=== PATIENT | male | born 1935 | race Caucasian/White ===

== ENCOUNTER 2019-01-09 20:50 | Inpatient (IN) ==
--- NOTE | 2019-01-09 21:06 | Emergency Department Note ---
Disposition Clinical Impression: COPD (chronic obstructive pulmonary disease), Anemia Disposition: Admitted As Inpatient Condition: Good Referrals: Deirdre Cohen CNP [Primary Care Provider] - Time of Disposition: 23:00 General Adult HPI - General Stated complaint: difficulty breathing Time Seen by Provider: 01/09/19 20:50 Source: patient Mode of arrival: EMS Limitations: no limitations Nursing Notes Reviewed: Yes Vital Signs Reviewed: Yes - History of Present Illness HPI Narrative: Patient presents by squad complaining of shortness of breath. Started last night he took his breathing treatment he thought was getting better but over the course of the day started getting worse again. He was given a breathing treatment by the squad on the way in and says he feels about normal at this point. Has not had any fevers or chills. No chest pain nausea or vomiting. Onset (ago): day(s) (1 day) Location: chest Pain Scale: 0 Consistency: constant Improves with: other (Breathing treatment) Worsens with: nothing Associated symptoms: Reports: shortness of breath Treatments Prior to Arrival: other (duoneb treatment, Solu-Medrol as well as Lasix by EMS) - Related Data Home Medications Medication Instructions Recorded Confirmed Losartan Potassium [Cozaar] 100 mg PO DAILY 05/17/17 01/09/19 Torsemide 5 mg PO DAILY 05/17/17 01/09/19 amLODIPine [Norvasc] 10 mg PO DAILY 05/17/17 01/09/19 metFORMIN [Glucophage] 850 mg PO BIDWM 05/17/17 01/09/19 Budesonide/Formoterol 160/4.5 2 puff IH BID 06/07/17 01/09/19 [Symbicort 160/4.5] Pravastatin Sodium [Pravachol] 20 mg PO DAILY 08/01/17 01/09/19 Cyanocobalamin (Vitamin B-12) 1,000 mcg PO DAILY 01/04/18 01/09/19 [Vitamin B-12] Aspirin [Ecotrin] 325 mg PO DAILY 04/18/18 01/09/19 Ipratropium/Albuterol Sulfate 3 ml IH Q6H PRN 09/13/18 01/09/19 [Iprat-Albut 0.5-3(2.5) mg/3 ml] Tiotropium [place] [Spiriva 2 puff IH DAILY 09/13/18 01/09/19 Respimat] Previous Rx's Medication Instructions Recorded Diltiazem CD (24hr) [Cardizem CD] 120 mg PO DAILY #30 cap.er.24h 06/15/17 Omeprazole [PriLOSEC] 40 mg PO BID #56 cap 08/05/17 Albuterol Sulfate [Proventil 2 puff IH Q4HR PRN #1 hfa.aer.ad 04/18/18 Inhaler] Allergies Allergy/AdvReac Type Severity Reaction Status Date / Time No Known Allergies Allergy Verified 01/09/19 21:08 All systems ED: reviewed and negative except as stated. Review of Systems: As Per HPI Constitutional: Denies: fever, chills, weakness, weight change Eyes: Denies: eye pain, eye discharge, vision change ENT ED: Denies: ear pain, throat pain, dental pain, hearing loss, epistaxis, congestion, dysphagia Cardiovascular: Denies: chest pain, palpitations, dyspnea on exertion, edema, syncope Respiratory: Reports: as per HPI, dyspnea, wheezes Gastrointestinal: Denies: abdominal pain, nausea, vomiting, diarrhea, constipation, hematemesis, melena, hematochezia Genitourinary: Denies: urgency, dysuria, frequency, hematuria Musculoskeletal: Denies: back pain, neck pain, arthralgia, myalgia Integumentary: Denies: rash, abrasion, lesions Neurological: Denies: headache, weakness, numbness, paresthesias, confusion, abnormal gait, vertigo Psychiatric: Denies: anxiety, depression, suicidal thoughts, homicidal thoughts, auditory hallucinations, visual hallucinations Endocrine: Denies: fatigue Hematological/Lymphatic: Denies: easy bleeding, easy bruising Allergic/Immunologic: Denies: facial swelling, urticaria Past Medical History - Past Medical History Attestation: Yes The following information was validated with the patient. Source: patient, nursing notes reviewed Medical history: Reports: COPD, coronary artery disease, diabetes, GERD, hyperlipidemia, hypertension Psychiatric history: Reports: no psych history - Social History Smoking Status: Former smoker Smokeless Tobacco Status: No Alcohol use: Reports: none Drug use: Reports: none Physical Exam - General Limitations: no limitations General appearance: alert, in no apparent distress - Head Head exam: atraumatic, normocephalic, normal inspection - Eye Eye exam: Present: normal appearance, PERRL, EOMI - ENT ENT exam: normal exam, normal oropharynx, mucous membranes moist - Neck Neck exam: Present: normal inspection, full ROM, trachea midline - Chest Chest inspection: Present: normal inspection, symmetric chest wall rise - Respiratory Respiratory exam: Present: wheezes (Minimal scattered wheeze). Absent: respiratory distress - Cardiovascular Cardiovascular exam: Present: regular rate, normal rhythm, normal heart sounds - Abdominal Exam Abdominal exam: Present: soft, Non-Tender. Absent: tenderness, distention, guarding, rebound, rigidity - Extremities Exam Extremities exam: Present: normal inspection, full ROM. Absent: tenderness, pedal edema - Back Exam Back exam: Present: normal inspection, full ROM. Absent: tenderness - Neurological Exam Neurological exam: Present: alert, oriented X3 - Psychiatric Psychiatric exam: Present: normal affect, normal mood - Skin Skin exam: Present: warm, dry, intact, normal color Course Vital Signs Temperature 99 F 01/09/19 21:05 Pulse Rate 65 01/09/19 21:05 Respiratory Rate 26 01/09/19 21:05 Blood Pressure 167/65 01/09/19 21:05 O2 Sat by Pulse Oximetry 97 01/09/19 21:05 Temperature 99 F 01/09/19 21:05 Pulse Rate 72 01/09/19 21:49 Respiratory Rate 21 01/09/19 21:49 Blood Pressure 153/60 01/09/19 21:49 O2 Sat by Pulse Oximetry 99 01/09/19 21:49 Oxygen Delivery Oxygen Delivery Nasal Cannula Medical Decision Making - MDM Narrative Medical decision making narrative: I reviewed the patient's medication list Case discussed with Dr. Naylor who accepts admission to the hospital - Lab Data Lab results reviewed: Yes I reviewed the patient's lab results. Result diagrams: 01/09/19 21:25 01/09/19 21:25 Lab Results 01/09/19 01/09/19 Range/Units 21:25 21:25 WBC 6.9 (4.3-11.1) K/mcL RBC 2.84 L (4.19-5.50) M/mcL Hgb 7.6 L (12.9-16.9) g/dL Hct 25.3 L (37.5-50.1) % MCV 89.1 (83.0-100.0) fL MCH 26.8 L (28.0-33.3) pg MCHC 30.0 L (31.6-35.5) g/dL RDW 15.8 H (11.5-14.5) % Plt Count 361 (140-400) K/mcL MPV 10.0 (9.4-12.4) fL Immature Gran % 0.6 (0-4) % Seg Neutrophils % 73.2 % Lymphocytes % 17.3 % Monocytes % 5.9 % Eosinophils % 3.0 % Basophils % 0.0 % Neutrophils # 5.1 (1.6-8.9) K/mcL Lymphocytes # 1.2 (0.6-4.6) K/mcL Monocytes # 0.4 (0.0-1.3) K/mcL Eosinophils # 0.2 (0.0-0.6) K/mcL Basophils # 0.0 (0.0-0.2) K/mcL Sodium 140 (136-145) mEq/L Potassium 4.3 (3.5-5.1) mEq/L Chloride 98 (98-107) mEq/L Carbon Dioxide 36 H (23-29) mEq/L BUN 29 H (8-23) mg/dL Creatinine 1.23 (0.70-1.30) mg/dL Est GFR ( Amer) > 60 (> 60) Est GFR (Non-Af Amer) 56 L (> 60) BUN/Creatinine Ratio 24 (6-26) Glucose 134 H (70-105) mg/dL Calculated Osmolality 298 (280-300) Calcium 9.2 (8.6-10.3) mg/dL Total Bilirubin 0.3 (0.3-1.0) mg/dL AST 11 L (13-39) Units/L ALT 9 (7-52) Units/L Alkaline Phosphatase 42 (34-104) Units/L Troponin I < 0.03 (< 0.04) ng/mL Serum Total Protein 6.4 (6.4-8.9) g/dL Albumin 3.9 (3.5-5.7) g/dL Globulin 2.5 (2.4-3.5) g/dL Albumin/Globulin Ratio 1.6 (1.1-2.2) - Radiology Data Radiology results reviewed: Yes I reviewed the patient's radiology results. - EKG Data EKG #1 EKG attestation: Yes I reviewed and interpreted this EKG. EKG results narrative: EKG shows sinus rhythm with first-degree AV block rate is 70 bpm MA interval 238 ms [place] 84 ms QT interval 367 ms QTC 396 ms QRS axis -[address] elevation there is left axis deviation
[2019-01-09 21:43] LABS: Eosinophils # 0.2 K/mcL (0.0-0.6); Hematocrit 25.3 % (37.5-50.1); Hemoglobin 7.6 g/dL (12.9-16.9); Immature Granulocytes % 0.6 % (0-4); Lymphocytes # 1.2 K/mcL (0.6-4.6); Lymphocytes % 17.3 %; Mean Corpuscular Hemoglobin 26.8 pg (28.0-33.3); Mean Corpuscular Volume 89.1 fL (83.0-100.0); Monocytes # 0.4 K/mcL (0.0-1.3); Monocytes % 5.9 %; Neutrophils # 5.1 K/mcL (1.6-8.9); Platelet Count 361 K/mcL (140-400); Red Blood Count 2.84 M/mcL (4.19-5.50); Red Cell Distribution Width 15.8 % (11.5-14.5); Segmented Neutrophils % 73.2 %; White Blood Count 6.9 K/mcL (4.3-11.1)
[2019-01-09 21:57] LABS: Troponin I < 0.03 ng/mL (< 0.04)
[2019-01-09 21:58] LABS: Alanine Aminotransferase 9 Units/L (7-52); Albumin 3.9 g/dL (3.5-5.7); Albumin/Globulin Ratio 1.6 (1.1-2.2); Alkaline Phosphatase 42 Units/L (34-104); Aspartate Amino Transferase 11 Units/L (13-39); BUN/Creatinine Ratio 24 (6-26); Bilirubin,Total 0.3 mg/dL (0.3-1.0); Blood Urea Nitrogen 29 mg/dL (8-23); Calcium 9.2 mg/dL (8.6-10.3); Carbon Dioxide 36 mEq/L (23-29); Chloride 98 mEq/L (98-107); Globulin 2.5 g/dL (2.4-3.5); Glucose 134 mg/dL (70-105); Osmolality,Calculated 298 (280-300); Potassium 4.3 mEq/L (3.5-5.1); Sodium 140 mEq/L (136-145); Total Protein 6.4 g/dL (6.4-8.9); eGFR For African Americans > 60 (> 60); eGFR For Non-African Americans 56 (> 60)
[2019-01-09] MEDS ORDERED: Naloxone 0.4 MG/ML INJ IVP PRN (23:24)
[2019-01-10] MEDS ORDERED: methylPREDNISolone 125 MG/2 ML VIAL IVP ONE (00:01)
[2019-01-10] MEDS ORDERED: *HR* Dextrose 50 % in Water (Syg) 50 ML SYRINGE IVP PRN (00:03)
[2019-01-10] MEDS ORDERED: Dextrose Gel 15 GM/37.5 ML TUBE PO PRN ×2 (00:03)
[2019-01-10] MEDS ORDERED: D5% in Water 1,000 ML IVC PRN (00:03)
[2019-01-10] MEDS ORDERED: 0.9 % Sodium Chloride 250 ML ONE (00:22)
[2019-01-10 05:57] LABS: Hematocrit 26.6 % (37.5-50.1); Hemoglobin 8.1 g/dL (12.9-16.9); Immature Granulocytes % 0.5 % (0-4); Lymphocytes # 0.2 K/mcL (0.6-4.6); Lymphocytes % 5.2 %; Mean Corpuscular HGB Conc 30.5 g/dL (31.6-35.5); Mean Corpuscular Hemoglobin 26.6 pg (28.0-33.3); Mean Corpuscular Volume 87.5 fL (83.0-100.0); Mean Platelet Volume 9.5 fL (9.4-12.4); Monocytes % 0.7 %; Platelet Count 305 K/mcL (140-400); Red Blood Count 3.04 M/mcL (4.19-5.50); Red Cell Distribution Width 15.8 % (11.5-14.5); Segmented Neutrophils % 93.6 %; White Blood Count 4.3 K/mcL (4.3-11.1)
[2019-01-10 06:10] LABS: BUN/Creatinine Ratio 27 (6-26); Blood Urea Nitrogen 28 mg/dL (8-23); Carbon Dioxide 37 mEq/L (23-29); Chloride 98 mEq/L (98-107); Glucose 225 mg/dL (70-105); Osmolality,Calculated 303 (280-300); Potassium 4.8 mEq/L (3.5-5.1); Sodium 140 mEq/L (136-145); eGFR For African Americans > 60 (> 60); eGFR For Non-African Americans > 60 (> 60)
--- NOTE | 2019-01-10 07:25 | Internal Med History&Physical ---
Date of Encounter: 01/10/19 Time of Encounter: 07:25 Assessment and Plan (1) Acute exacerbation of chronic obstructive airways disease Current visit: Yes Status: Acute Patient has history of chronic COPD and oxygen dependent. He failed outpatient treatment in the office and now in the ER. He will be admitted and have continued IV steroids, aggressive nebulizer treatments. He will continue with his oxygen a takes chronically. We will increase his ADLs as tolerated. Continue his inhalers. At this time do not think he needs antibiotics. (2) Paroxysmal atrial fibrillation Current visit: Yes Status: Chronic History of paroxysmal atrial fibrillation, appears to be in sinus rhythm. No angina or CHF. He is not anticoagulated now because a history of recurring anemia. His Eliquis was discontinued previously and he is on aspirin. He has seen Dr. Rahat Barone the manager entry in the past for this. (3) Diabetes type 2, controlled Current visit: Yes Status: Chronic Chronic history of diabetes mellitus. His last glycohemoglobin was in the appropriate range. He has been a while so we will recheck it Qualifiers: Diabetes mellitus termite control representative insulin use: without termite control representative use Diabetes mellitus complication status: without complication Qualified Code(s): E11.9 - Type 2 diabetes mellitus without complications (4) HTN (hypertension) Current visit: Yes Status: Chronic History of hypertension. He is on numerous medications, including some that are also rate controlling his of atrial fibrillation. Blood pressure is under good control currently. Continue same medication. He apparently is on Cardizem as well as amlodipine at the same time. Apparently this is prescribed by the manager entry. Qualifiers: Hypertension type: essential hypertension Qualified Code(s): I10 - Essential (primary) hypertension (5) Dyspnea Current visit: Yes Status: Acute Patient states that his dyspnea worsened when he finished his steroids that was given to him orally as an outpatient. He is feeling better with IV steroids and admission. Continue the same for now. Continue the oxygen. Qualifiers: Dyspnea type: shortness of breath Qualified Code(s): R06.02 - Shortness of breath; R06.00 - Dyspnea, unspecified; R06.01 - Orthopnea (6) Anemia Current visit: Yes Status: Chronic Recurring issues regarding anemia. He told me he has been scoped while admitted at [place]. His Eliquis was discontinued because of bleeding and is now taking only aspirin. He had over 2 g hemoglobin drop and because of his symptoms the ER physician felt he would benefit from unit of blood. That was already performed. He is feeling better. We will follow again with another hemoglobin in 12 hours. Qualifiers: Anemia type: due to chronic kidney disease Chronic kidney disease stage: stage 3 (moderate) Qualified Code(s): N18.3 - Chronic kidney disease, stage 3 (moderate); D63.1 - Anemia in chronic kidney disease (7) CAD (coronary artery disease) Current visit: Yes Status: Chronic Known history coronary artery disease and previous heart catheterization. Minor disease and did not need intervention other than medical management. No angina or CHF on this admission. Qualifiers: Coronary Disease-Associated Artery/Lesion type: [place] artery [place] vs. transplanted heart: [place] heart Associated angina: without angina Qualified Code(s): I25.10 - Atherosclerotic heart disease of [place] coronary artery without angina pectoris (8) DVT prophylaxis Current visit: Yes Status: Acute Because of his ongoing anemia, need for blood transfusion last night, we will continue his aspirin and will initiate early ambulation as well as elastic stockings. Internal Medicine - H&P: HPI Chief complaint: I got too short of breath and had to come to the ER Admitted From: Emergency Dept Plans for Post Hospital Care: Home History of present illness: Mr. Presley is a 83 year old male who is a previous smoker with a history of COPD, diabetes mellitus, hypertension who is admitted via the ER with exacerbation of COPD and anemia. He was seen in the office on 12/30/18 with complaints of cough and shortness of breath. He was treated with prednisone and azithromycin. He states that he got better until he finished the medication then he got worse again. He started lee ving a cough and "spitting up stuff". He increased his nebulizer treatments without help. He denies any fevers or chills. At home he said he could barely walk from one room to another. He denied any cardiac type chest pain. Despite increasing the frequency of his nebulizer treatments he worsened to the point where he had to come to the emergency room. He was not moving air well there did not clear with nebulizer treatment. He also has a history of chronic anemia. He states his stools "looked normal". He told me he was hospitalized in [place] and had a blood transfusion and was also scoped while in the hospital. He denies any abdominal pain other than in the right lower quadrant particular when he coughs. His hemoglobin dropped about 2 g compared to baseline in the ER physician thought he was symptomatic enough to warrant getting a unit of blood transfused. Having failed outpatient treatment twice for COPD and now having anemia was recommended that he be admitted to the hospital. This morning, after a dose of steroids and breathing treatments he said that he is feeling better. He was still dyspneic and had wheezing present and he thought he was improving. Past Med Surg Social Fam HX - Past Medical History Medical history: COPD, coronary artery disease, diabetes, GERD, hyperlipidemia, hypertension Psychiatric history: no psych history - Past Surgical History Surgical History: orthopedic, other Additional surgical history: heart cath, L ankle ORIF - Social History Smoking Status: Former smoker (Quit smoking in 2008 after having smoked "all his life") Smokeless Tobacco Status: No Alcohol use: none Drug use: none Occupational status: retired Current living situation: Home - Independent Activity Level: Independent ambulation Recent Out of Country Travel Within the Last 8 Weeks: No Exposure or Possible Exposure to Illness During Travel: No - Family History Grandmother Living Status: Hx Family Neurologic Disorders: Yes (stroke) Mother Living Status: Hx Family Cardiac Disorders: Yes (heart failure) Internal Medicine - H&P: Meds Losartan Potassium [Cozaar] 100 mg PO DAILY 05/17/17 [History] Torsemide 5 mg PO DAILY 05/17/17 [History] amLODIPine [Norvasc] 10 mg PO DAILY 05/17/17 [History] metFORMIN [Glucophage] 850 mg PO BIDWM 05/17/17 [History] Budesonide/Formoterol 160/4.5 [Symbicort 160/4.5] 2 puff IH BID 06/07/17 [History] Diltiazem CD (24hr) [Cardizem CD] 120 mg PO DAILY #30 cap.er.24h 06/15/17 [Rx] Pravastatin Sodium [Pravachol] 20 mg PO DAILY 08/01/17 [History] Omeprazole [PriLOSEC] 40 mg PO BID #56 cap 08/05/17 [Rx] Cyanocobalamin (Vitamin B-12) [Vitamin B-12] 1,000 mcg PO DAILY 01/04/18 [History] Albuterol Sulfate [Proventil Inhaler] 2 puff IH Q4HR PRN #1 hfa.aer.ad 04/18/18 [Rx] Aspirin [Ecotrin] 325 mg PO DAILY 04/18/18 [History] Ipratropium/Albuterol Sulfate [Iprat-Albut 0.5-3(2.5) mg/3 ml] 3 ml IH Q6H PRN 09/13/18 [History] Tiotropium [place] [Spiriva Respimat] 2 puff IH DAILY 09/13/18 [History] Allergy/AdvReac Type Severity Reaction Status Date / Time No Known Allergies Allergy Verified 01/09/19 21:08 - Constitutional Constitutional: no chills, no fever(s), no falls - EENT Eyes: no change in vision Ears: no ear discharge, no ear pain Nose, mouth and throat: no dry mouth, no sore throat - Cardiovascular Cardiovascular ROS IM: dyspnea, dyspnea on exertion, no chest pain, no claudication, no edema, no irregular heart rhythm, no lightheadedness - Respiratory Respiratory: cough, dyspnea, dyspnea on exertion, wheezing, chest congestion, excessive phlegm production, no hemoptysis - Gastrointestinal Gastrointestinal: no change in bowel habits, no change in stool character, no coffee ground emesis, no constipation, no diarrhea, no dyspepsia, no loose stools, no melena, no nausea - Genitourinary Genitourinary ROS male: no difficulty urinating, no dysuria - Musculoskeletal Musculoskeletal ROS IM: no arthralgias, no joint swelling - Integumentary Integumentary IM: no erythema, no new lesions, no rash - Neurological Neurological ROS: no dizziness, no focal weakness, no vertigo - Psychiatric Psychiatric: no depression - Constitutional Vitals: Temp Pulse Resp BP Pulse Ox 97.7 F 68 16 145/67 97 01/10/19 03:59 01/10/19 03:59 01/10/19 03:59 01/10/19 03:59 01/10/19 03:59 General appearance: Present: cooperative, mild distress, A&O X 3, answers questions appropriately - Head Head exam: Present: atraumatic - ENT ENT exam: Present: TM's normal bilaterally Additional comments: Mucous membranes are moist. He is missing many teeth. - Neck Neck exam general surgery: Absent: lymphadenopathy, tenderness, nuchal rigidity, thyromegaly - Respiratory Additional comments: Diminished breath sounds throughout. Inspiratory wheezes heard throughout. No respiratory distress. No localization of crackles or rhonchi. No cough. He is wearing oxygen at 3 L per nasal cannula - Cardiovascular Cardiovascular exam: Present: RRR, +S1, +S2, systolic murmur (2/6 systolic murmur) - GI/Abdominal GI/Abdominal exam: Present: soft. Absent: guarding, hepatomegaly, mass, tenderness - Extremities Exam Extremities exam: Absent: calf tenderness, cyanotic, mottling, pedal edema, tenderness - Neurological Exam Neurological exam: Present: CN II-XII intact, strengths equal and symetr throughout Internal Med - H&P Results - Labs CBC & Chem 7: 01/10/19 15:55 01/10/19 05:50 Labs: Short CBC 01/09/19 01/10/19 Range/Units 21:25 05:50 WBC 6.9 4.3 (4.3-11.1) K/mcL Hgb 7.6 L 8.1 L (12.9-16.9) g/dL Hct 25.3 L 26.6 L (37.5-50.1) % Plt Count 361 305 (140-400) K/mcL Neutrophils # 5.1 4.0 (1.6-8.9) K/mcL BMP 01/09/19 01/10/19 21:25 05:50 Sodium 140 140 Potassium 4.3 4.8 Chloride 98 98 Carbon Dioxide 36 H 37 H BUN 29 H 28 H Creatinine 1.23 1.03 Glucose 134 H 225 H Calcium 9.2 9.0 Cardiac Enzymes 01/09/19 Range/Units 21:25 Troponin I < 0.03 (< 0.04) ng/mL Liver Function 01/09/19 Range/Units 21:25 Total Bilirubin 0.3 (0.3-1.0) mg/dL AST 11 L (13-39) Units/L ALT 9 (7-52) Units/L Alkaline Phosphatase 42 (34-104) Units/L Albumin 3.9 (3.5-5.7) g/dL Labs have been reviewed. Blood blister count is normal. Creatinine normal. Troponin negative. Hemoglobin on admission in the ER was 7.6, after transfusion 1 unit is 8.1. - Impressions ITS Impressions Chest X-Ray 01/09/19 21:08 IMPRESSION: Negative portable study. D/ / Shirley Malin Cha, MD / Shirley Malin Cha, MD Interpreting Provider: Shirley Malin Cha, MD
[2019-01-10] MEDS: *HR* Metformin 850 MG TABLET PO SCH ×2 (08:17→17:01)
[2019-01-10] MEDS: Aspirin Enteric Coated 325 MG Tablet PO SCH (08:17)
[2019-01-10] MEDS: Torsemide 20 MG TABLET PO SCH (08:17)
[2019-01-10] MEDS: Diltiazem CD (24hr) 120 MG CAPSULE PO SCH (08:17)
[2019-01-10] MEDS: amLODIPine 5 MG TABLET PO SCH (08:17)
[2019-01-10] MEDS: Cyanocobalamin (B-12) 1,000 MCG TABLET PO SCH (08:18)
[2019-01-10] MEDS: Ipratropium/Albuterol Neb 3 ML IH PRN ×2 (08:53→19:16)
[2019-01-10] MEDS: Budesonide/Formoterol 160/4.5 1 PUFF INH IH SCH ×2 (08:54→19:17)
[2019-01-10] MEDS: Tiotropium 18 MCG inhalation IH SCH (08:56)
[2019-01-10 10:28] LABS: Estimated Average Glucose 120 mg/dl
--- NOTE | 2019-01-10 14:06 | Electrocardiograph Report ---
[place] [id number] Test Date: 2019-01-09 Pat Name: Glenda Presley Department: EDG3 Room: 112 Gender: M Director [place]: : 1935 Requested By: Santiago Call Order Number: [id number] Reading MD: Letty Mcguire Measurements Intervals [place] Rate: 70 P: 122 WI: 238 QRS: -38 QRSD: 84 T: 73 QT: 367 QTc: 396 Interpretive Statements Sinus rhythm with 1st degree AVB Left axis deviation Probable anteroseptal infarct, old Electronically Signed On 01-10-2019 14:04:18 EDT by Letty Mcguire
--- NOTE | 2019-01-10 19:56 | Event Note ---
Date of Encounter: 01/10/19 Time of Encounter: 19:55 I reevaluated the patient this evening. He is asking for another breathing treatment. He states he could not do more than just minimal walking in his small room. Requiring oxygen at 3 L. He told me he is feeling more dyspneic tonight than he did this morning. Denies any cardiac type chest pain. He has inspiratory next story wheezes, decreased breath sounds in the left side compared to this morning. Heart is regular rate and rhythm with 2/6 systolic murmur. Having failed outpatient treatment twice including the office and ER, and he is not improving with his symptoms, I believe he needs ongoing IV steroids, oxygen and aggressive nebulizer treatments. I will make arrangements for him to be admitted as I anticipate is going to be here 2 midnights or more.
[2019-01-10] MEDS: methylPREDNISolone 125 MG/2 ML VIAL IVP SCH (23:32)
[2019-01-11 05:40] LABS: Hemoglobin 7.8 g/dL (12.9-16.9); Immature Granulocytes % 0.6 % (0-4); Lymphocytes # 0.3 K/mcL (0.6-4.6); Lymphocytes % 3.3 %; Mean Corpuscular HGB Conc 31.2 g/dL (31.6-35.5); Mean Corpuscular Volume 86.5 fL (83.0-100.0); Monocytes # 0.1 K/mcL (0.0-1.3); Monocytes % 1.7 %; Platelet Count 304 K/mcL (140-400); Red Blood Count 2.89 M/mcL (4.19-5.50); Red Cell Distribution Width 15.9 % (11.5-14.5); Segmented Neutrophils % 94.4 %; White Blood Count 8.2 K/mcL (4.3-11.1)
[2019-01-11 05:41] LABS: Neutrophils # 7.7 K/mcL (1.6-8.9)
[2019-01-11 05:54] LABS: BUN/Creatinine Ratio 31 (6-26); Blood Urea Nitrogen 35 mg/dL (8-23); Calcium 8.8 mg/dL (8.6-10.3); Carbon Dioxide 33 mEq/L (23-29); Chloride 100 mEq/L (98-107); Glucose 195 mg/dL (70-105); Osmolality,Calculated 301 (280-300); Sodium 139 mEq/L (136-145); eGFR For African Americans > 60 (> 60); eGFR For Non-African Americans > 60 (> 60)
--- NOTE | 2019-01-11 07:24 | Internal Med Progress Note ---
Date of Encounter: 01/11/19 Time of Encounter: 07:22 - Assessment and plan (1) Acute exacerbation of chronic obstructive airways disease Current Visit: Yes Status: Acute Assessment and plan: He feels like he is improving. With now the parents of rhonchi he may have an underlying infection. I am going to add an antibiotic orally. Continue with his nebulizer treatments, but he thinks he needs a more often and will increase from every 6 hours every 4 hours when necessary. Continue IV steroids. (2) Paroxysmal atrial fibrillation Current Visit: Yes Status: Chronic Assessment and plan: Regular rate and rhythm. No signs of atrial fibrillation or cardiac symptoms. Not anticoagulated because of his history of anemia (3) Diabetes type 2, controlled Current Visit: Yes Status: Chronic Assessment and plan: Sugars are under fair control. Continue current regimen. His glycohemoglobin is 5.8%. (But he has had a recent blood transfusion) Qualifiers: Diabetes mellitus mcfp insulin use: without medical terminologist use Diabetes mellitus complication status: without complication Qualified Code(s): E11.9 - Type 2 diabetes mellitus without complications (4) HTN (hypertension) Current Visit: Yes Status: Chronic Assessment and plan: Blood pressure is under good control. Qualifiers: Hypertension type: essential hypertension Qualified Code(s): I10 - Essential (primary) hypertension (5) Dyspnea Current Visit: Yes Status: Acute Assessment and plan: His breathing is showing some improvement. Still requires oxygen. We are going to try to increase his activity level. Qualifiers: Dyspnea type: shortness of breath Qualified Code(s): R06.02 - Shortness of breath; R06.00 - Dyspnea, unspecified; R06.01 - Orthopnea (6) Anemia Current Visit: Yes Status: Chronic Assessment and plan: His hemoglobin is dipping again. He had negative Hemoccult in the ER. We will recheck another Hemoccult. I will try to find documentation of his endoscopies at [place]. He is already on PPI. Please not she has never seen a raw hide trimmer, and that may be necessary. He had evidence of iron deficiency anemia and may. I will repeat his iron studies. I will be sure he is taking his iron. Qualifiers: Anemia type: due to chronic kidney disease Chronic kidney disease stage: stage 3 (moderate) Qualified Code(s): N18.3 - Chronic kidney disease, stage 3 (moderate); D63.1 - Anemia in chronic kidney disease (7) CAD (coronary artery disease) Current Visit: Yes Status: Chronic Assessment and plan: No angina or CHF. Qualifiers: Coronary Disease-Associated Artery/Lesion type: [place] artery [place] vs. transplanted heart: [place] heart Associated angina: without angina Qualified Code(s): I25.10 - Atherosclerotic heart disease of [place] coronary artery without angina pectoris (8) DVT prophylaxis Current Visit: Yes Status: Acute Assessment and plan: Using elastic stockings and ambulation. We are trying to avoid anticoagulation because of his anemia. - Subjective Interval history: Feels that he is getting better. He is looking forward to getting a shower today. He is really not been able to be out of the room yet because of his br eathing. He is having less sputum. Having no cardiac chest pain. He thinks he is having less swelling in his feet. His hemoglobin is back down today. He denies melena or hematochezia. He thinks he had endoscopies when he was admitted in [place] in the past, but is not certain. He does not think he has seen a raw hide trimmer though it was recommended in the office records. No abdominal pain. - Constitutional Vitals: Temp Pulse Resp BP Pulse Ox 98.4 F 71 20 142/63 99 01/11/19 07:18 01/11/19 07:18 01/11/19 07:18 01/11/19 07:18 01/11/19 07:18 General appearance: Present: cooperative, A&O X 3, answers questions appropriately Exam: Patient is sitting at the edge the bed drinking a cup of coffee this morning. He is wearing his oxygen. He is in no distress. - Respiratory Respiratory exam: Present: decreased breath sounds, prolonged expiratory phase Additional comments: A few rhonchi noted in the right mid and lower lung field. End-expiratory wheezes heard. No respiratory distress. - Cardiovascular Cardiovascular exam: Present: RRR, +S1, +S2, systolic murmur (2/6 systolic murmur heard best along the left lower sternal border) - Extremities Exam Additional comments: Patient is wearing his elastic stockings. He does have edema over the dorsum of both feet. Internal Medicine: Result - Labs CBC & Chem 7: 01/11/19 05:00 01/11/19 05:00 Labs: Short CBC 01/10/19 01/11/19 Range/Units 15:55 05:00 WBC 8.2 D (4.3-11.1) K/mcL Hgb 9.2 L 7.8 L (12.9-16.9) g/dL Hct 25.0 L (37.5-50.1) % Plt Count 304 (140-400) K/mcL Neutrophils # 7.7 (1.6-8.9) K/mcL BMP 01/11/19 05:00 Sodium 139 Potassium 5.0 Chloride 100 Carbon Dioxide 33 H BUN 35 H Creatinine 1.12 Glucose 195 H Calcium 8.8 Hemoglobin has dropped again from 9.2-7.8. The rest of his lab work is basically unremarkable. Consult Discharge Plan - Plan
[2019-01-11] MEDS: methylPREDNISolone 125 MG/2 ML VIAL IVP SCH ×3 (08:16→23:58)
[2019-01-11] MEDS: Aspirin Enteric Coated 325 MG Tablet PO SCH (08:17)
[2019-01-11] MEDS: Diltiazem CD (24hr) 120 MG CAPSULE PO SCH (08:18)
[2019-01-11] MEDS: *HR* Metformin 850 MG TABLET PO SCH ×2 (08:18→16:15)
[2019-01-11] MEDS: levoFLOXacin 500 MG TABLET PO SCH (08:18)
[2019-01-11] MEDS: Torsemide 20 MG TABLET PO SCH (08:19)
[2019-01-11] MEDS: amLODIPine 5 MG TABLET PO SCH (08:19)
[2019-01-11] MEDS: Cyanocobalamin (B-12) 1,000 MCG TABLET PO SCH (08:20)
[2019-01-11] MEDS: Ipratropium/Albuterol Neb 3 ML IH PRN ×3 (08:35→20:20)
[2019-01-11] MEDS: Tiotropium 18 MCG inhalation IH SCH (09:48)
[2019-01-11] MEDS: Budesonide/Formoterol 160/4.5 1 PUFF INH IH SCH ×2 (09:48→20:20)
[2019-01-11] MEDS ORDERED: Saline Nasal Spray 44 ML BOTTLE NS PRN (11:05)
[2019-01-11 19:15] LABS: % Iron Saturation 9 % (20-55); Iron 42 mcg/dL (65-175); Transferrin 335 mg/dL (203-362)
[2019-01-12] MEDS: Ipratropium/Albuterol Neb 3 ML IH PRN (00:10)
[2019-01-12] MEDS: levoFLOXacin 500 MG TABLET PO SCH (08:09)
[2019-01-12] MEDS: *HR* Metformin 850 MG TABLET PO SCH ×2 (08:09→16:27)
[2019-01-12] MEDS: Torsemide 20 MG TABLET PO SCH (08:09)
[2019-01-12] MEDS: amLODIPine 5 MG TABLET PO SCH (08:10)
[2019-01-12] MEDS: Aspirin Enteric Coated 325 MG Tablet PO SCH (08:10)
[2019-01-12] MEDS: Cyanocobalamin (B-12) 1,000 MCG TABLET PO SCH (08:10)
[2019-01-12] MEDS: Diltiazem CD (24hr) 120 MG CAPSULE PO SCH (08:10)
[2019-01-12] MEDS: methylPREDNISolone 125 MG/2 ML VIAL IVP SCH ×2 (10:16→16:27)
[2019-01-12] MEDS: Tiotropium 18 MCG inhalation IH SCH (10:16)
[2019-01-12] MEDS: Budesonide/Formoterol 160/4.5 1 PUFF INH IH SCH (10:20)
[2019-01-12 15:51] VITALS: BP 144/56
--- NOTE | 2019-01-12 16:47 | Discharge Summary ---
- NOTES TO OUTPATIENT PROVIDER Notes to Outpatient Provider: #1. Patient needs follow-up with GI because of anemia and guaiac positive stool. Referral has been placed in [facility]. #2. Patient being discharged on prednisone and levofloxacin. #3. Order printed for follow-up hemoglobin to be done no later than Wednesday Date of Encounter: 01/12/19 Time of Encounter: 16:45 - Discharge Diagnosis (1) Acute exacerbation of chronic obstructive airways disease Priority: Primary Status: Acute Comments: Patient was admitted to the hospital via ER with a history of dyspnea and cough. He had exacerbation of COPD. He received aggressive intravenous steroids and nebulizer treatment and started on levofloxacin. Over the subsequent 2-3 days he improved dramatically. His cough diminished, sputum production was minimal and was able to be ambulatory in the hallway without difficulty. He is chronically dependent on oxygen at 3 L and his saturations are staying in the mid 90s. He will continue his MDIs as well as his nebulizer treatments at home. He will start a taper of prednisone and finish out a course of Levaquin. He will follow-up in the office with Dr. Naylor in a few days. He was told to call or return if he is worsening. (2) Guaiac positive stools Priority: Secondary Status: Acute Comments: On admission patient's blood count had dropped from 9 range chronically to 7.6 and because of his symptoms to ER physician transfuse a unit of blood. Since then his blood count has been in the 7.8-9.2 g range. Latest hemoglobin 8.3. He did not need a blood transfusion afterwards. However, they ER reported guaiac negative stool, but guaiac was positive as tested prior to discharge. He does not have any signs of a brisk bleed or hemodynamically unstable. No angina. He had a colonoscopy July [address] Corbin. I could not find a specific record that he has had an EGD. With his iron deficiency anemia and guaiac positive stool recommended he be reevaluated Dr. Corbin anticipate EGD to be done. I recommended decreasing his aspirin from 325 mg down 81 mg daily. He takes this because of his history of coronary artery disease and prior atrial fibrillation. (He was on Eliquis but it was discontinued because of his anemia issues). He is to have a hemoglobin tested no later than next Wednesday. I told him about warning signs to look for including blood per rectum, melena, abdominal pain, lightheadedness, angina etc. (3) Paroxysmal atrial fibrillation Priority: Secondary Status: Chronic Comments: Prior history of paroxysmal atrial fibrillation. He has been in sinus rhythm and asymptomatic regarding cardiac symptoms. No changes were made in his medications. Interestingly, he is on Norvasc as well as diltiazem and apparently that is with cardiology consent. (4) Diabetes type 2, controlled Priority: Secondary Status: Chronic Comments: Long-standing history of diabetes. His glycohemoglobin was 5.8%. His sugars occasionally were in the 200 range but otherwise under reasonable control with metformin. No changes were made in his medication. Qualifiers: Diabetes mellitus longterm insulin use: without longterm use Diabetes mellitus complication status: without complication Qualified Code(s): E11.9 - Type 2 diabetes mellitus without complications (5) HTN (hypertension) Priority: Secondary Status: Chronic Comments: Patient has a history of hypertension. His blood pressures are under good control. No hypotension despite the anemia. The changes were made in his blood pressure medications. Qualifiers: Hypertension type: essential hypertension Qualified Code(s): I10 - Essential (primary) hypertension (6) Dyspnea Priority: Secondary Status: Acute Qualifiers: Dyspnea type: shortness of breath Qualified Code(s): R06.02 - Shortness of breath; R06.00 - Dyspnea, unspecified; R06.01 - Orthopnea (7) Anemia Priority: Secondary Status: Chronic Comments: Patient was noted to have anemia on admission. Discussed as above. I recommended reevaluation with Dr. Corbin as I anticipate he needs EGD with his iron deficiency anemia and guaiac-positive stool. Qualifiers: Anemia type: due to chronic kidney disease Chronic kidney disease stage: stage 3 (moderate) Qualified Code(s): N18.3 - Chronic kidney disease, stage 3 (moderate); D63.1 - Anemia in chronic kidney disease (8) CAD (coronary artery disease) Priority: Secondary Status: Chronic Comments: No angina or CHF symptoms. We continued his current medications. I did decrease his aspirin from 325 mg to 81 mg because of guaiac positive stool and anemia. Qualifiers: Coronary Disease-Associated Artery/Lesion type: [place] artery [place] vs. transplanted heart: [place] heart Associated angina: without angina Qualified Code(s): I25.10 - Atherosclerotic heart disease of [place] coronary artery without angina pectoris Hospital course: Mr. Presley is a 83 year old male with known history of oxygen dependent COPD wa s admitted with exacerbation of COPD and anemia that required a blood transfusion. Please see the diagnoses above. At time of discharge she was ambulatory in the hallway, his cough dyspnea and sputum production all have improved dramatically and he is ready for discharge. Follow-up has been arranged for next week. Discharge discussed with: patient - Time Spent with Patient Total time spent providing and/or coordinating discharge services: - Discharge Medications Prescriptions: New Ipratropium/Albuterol Neb [Duoneb] 3 ml IH [id number] PRN inhsol PRN Reason: Shortness Of Breath/Wheezing Ferrous Sulfate 325 mg PO BIDWM #60 tablet levoFLOXacin [Levaquin] 500 mg PO DAILY #7 tablet predniSONE [PredniSONE] 10 mg PO DAILY #63 tablet Continued Budesonide/Formoterol 160/4.5 [Symbicort 160/4.5] 2 puff IH BID Diltiazem CD (24hr) [Cardizem CD] 120 mg PO DAILY #30 cap.er.24h Pravastatin Sodium [Pravachol] 20 mg PO DAILY Omeprazole [PriLOSEC] 40 mg PO BID #56 cap Cyanocobalamin (Vitamin B-12) [Vitamin B-12] 1,000 mcg PO DAILY Tiotropium [place] [Spiriva Respimat] 2 puff IH DAILY Ipratropium/Albuterol Sulfate [Iprat-Albut 0.5-3(2.5) mg/3 ml] 3 ml IH Q6H PRN PRN Reason: Shortness Of Breath amLODIPine [Norvasc] 10 mg PO DAILY Losartan Potassium [Cozaar] 100 mg PO DAILY metFORMIN [Glucophage] 850 mg PO BIDWM Torsemide 5 mg PO DAILY Aspirin [Ecotrin] 325 mg PO DAILY Albuterol Sulfate [Proventil Inhaler] 2 puff IH Q4HR PRN #1 hfa.aer.ad PRN Reason: Shortness Of Breath/Wheezing Home Medications: Losartan Potassium [Cozaar] 100 mg PO DAILY 05/17/17 [History] Torsemide 5 mg PO DAILY 05/17/17 [History] amLODIPine [Norvasc] 10 mg PO DAILY 05/17/17 [History] metFORMIN [Glucophage] 850 mg PO BIDWM 05/17/17 [History] Budesonide/Formoterol 160/4.5 [Symbicort 160/4.5] 2 puff IH BID 06/07/17 [History] Diltiazem CD (24hr) [Cardizem CD] 120 mg PO DAILY #30 cap.er.24h 06/15/17 [Rx] Pravastatin Sodium [Pravachol] 20 mg PO DAILY 08/01/17 [History] Omeprazole [PriLOSEC] 40 mg PO BID #56 cap 08/05/17 [Rx] Cyanocobalamin (Vitamin B-12) [Vitamin B-12] 1,000 mcg PO DAILY 01/04/18 [History] Albuterol Sulfate [Proventil Inhaler] 2 puff IH Q4HR PRN #1 hfa.aer.ad 04/18/18 [Rx] Aspirin [Ecotrin] 325 mg PO DAILY 04/18/18 [History] Ipratropium/Albuterol Sulfate [Iprat-Albut 0.5-3(2.5) mg/3 ml] 3 ml IH Q6H PRN 09/13/18 [History] Tiotropium [place] [Spiriva Respimat] 2 puff IH DAILY 09/13/18 [History] Ferrous Sulfate 325 mg PO BIDWM #60 tablet 01/12/19 [Rx] Ipratropium/Albuterol Neb [Duoneb] 3 ml IH [id number] PRN inhsol 01/12/19 [Rx] levoFLOXacin [Levaquin] 500 mg PO DAILY #7 tablet 01/12/19 [Rx] predniSONE [PredniSONE] 10 mg PO DAILY #63 tablet 01/12/19 [Rx] Allergies/Adverse Reactions: Allergy/AdvReac Type Severity Reaction Status Date / Time No Known Allergies Allergy Verified 01/09/19 21:08 Date of admission: 01/10/19 19:58 Primary care physician: Deirdre Cohen CNP Discharging clinician: Tarik Naylor Anticipated date of discharge: 01/12/19 - Constitutional Vitals: Temp Pulse Resp BP Pulse Ox 98.8 F 72 18 144/56 98 01/12/19 15:46 01/12/19 15:46 01/12/19 15:46 01/12/19 15:46 01/12/19 15:46 General appearance: Present: cooperative, A&O X 3, answers questions appropriately - Respiratory Additional comments: Diminished breath sounds throughout. A few sonorous breath sounds at the bases but no localization of crackles or rhonchi or wheezing. No respiratory distress. Saturations in the mid 90s with 3 L per nasal cannula. - Cardiovascular Cardiovascular exam: Present: RRR, +S1, +S2, systolic murmur (2/6 systolic murmur.) - Extremities Exam Additional comments: Pitting edema on dorsum of both feet. Nontender. No calf tenderness. Negative Homans sign. - Patient Status Disposition: Home, Self-Care Condition: Good Functional capacity at discharge: independent ambulation Overall status at discharge: patient is progressing back to baseline - Discharge Instructions Follow Up With: Tarik Naylor MD [Partnered Physician] - 01/18/19 9:45 am Forms: ED Satisfaction Letter - Diet and Activity Activity: increase activity as tolerated, wear oxygen at night Diet: diabetic diet, low salt diet - VTE Documentation of Mechanical Device: Graduated compression elastic hosiery
== END 2019-01-12 17:16 | disposition home or self-care (01) | DRG 192 ==
LOC: INPGRE 20:50 → EMEROOGRE 20:50 → INPGRE 23:24
PROVIDERS: ADMIT Family Medicine; ATTEND Family Medicine

== ENCOUNTER 2020-01-24 11:51 | Inpatient (IN) ==
[2020-01-24] MEDS ORDERED: Ipratropium/Albuterol Neb 3 ML IH ONE (12:18)
[2020-01-24] MEDS ORDERED: levoFLOXacin 750 MG/150 ML 750 MG/150 ML BAG IVPB ONE (12:43)
[2020-01-24 13:33] LABS: Basophils % 0.2 %; Eosinophils # 0.1 K/mcL (0.0-0.6); Eosinophils % 0.6 %; Hematocrit 27.9 % (37.5-50.1); Hemoglobin 8.5 g/dL (12.9-16.9); Immature Granulocytes % 0.5 % (0-4); Lymphocytes # 0.4 K/mcL (0.6-4.6); Mean Corpuscular HGB Conc 30.5 g/dL (31.6-35.5); Mean Corpuscular Hemoglobin 29.3 pg (28.0-33.3); Mean Corpuscular Volume 96.2 fL (83.0-100.0); Mean Platelet Volume 10.3 fL (9.4-12.4); Monocytes # 0.5 K/mcL (0.0-1.3); Monocytes % 5.4 %; Neutrophils # 8.7 K/mcL (1.6-8.9); Platelet Count 255 K/mcL (140-400); Red Cell Distribution Width 15.7 % (11.5-14.5); Segmented Neutrophils % 89.3 %; White Blood Count 9.8 K/mcL (4.3-11.1)
[2020-01-24 13:41] LABS: INR 1.1; Prothrombin Time 12.5 Seconds (9.4-12.1)
[2020-01-24 13:44] LABS: Activated Partial Thrombo Time 32.1 Seconds (26.0-36.0)
[2020-01-24 13:51] LABS: Troponin I 0.03 ng/mL (< 0.04)
[2020-01-24 13:52] LABS: Alanine Aminotransferase 10 Units/L (7-52); Albumin 3.7 g/dL (3.5-5.7); Albumin/Globulin Ratio 1.6 (1.1-2.2); Alkaline Phosphatase 30 Units/L (34-104); Aspartate Amino Transferase 13 Units/L (13-39); BUN/Creatinine Ratio 38 (6-26); Bilirubin,Direct 0.1 mg/dL (0.0-0.2); Bilirubin,Indirect 0.3 mg/dL (0.0-1.0); Bilirubin,Total 0.4 mg/dL (0.3-1.0); Blood Urea Nitrogen 35 mg/dL (8-23); Calcium 9.2 mg/dL (8.6-10.3); Carbon Dioxide 38 mEq/L (23-29); Chloride 102 mEq/L (98-107); Globulin 2.3 g/dL (2.4-3.5); Glucose 102 mg/dL (70-105); Osmolality,Calculated 310 (280-300); Potassium 3.8 mEq/L (3.5-5.1); Sodium 146 mEq/L (136-145); eGFR For African Americans > 60 (> 60); eGFR For Non-African Americans > 60 (> 60)
[2020-01-24 13:58] LABS: Bilirubin,Urine Negative (Negative); Blood,Urine Small (Negative); Clarity,Urine Clear (Clear); Color,Urine Yellow (Yellow); Glucose,Urine (UA) Normal (Normal); Ketones,Urine Negative (Negative); Leukocyte Esterase,Urine Negative (Negative); Nitrite,Urine Negative (Negative); Protein,Urine 100 mg/dL (Neg-Trace); Specific Gravity,Urine 1.025 (1.010-1.025); Urobilinogen,Urine Normal (Normal)
[2020-01-24 14:02] LABS: VBG HCO3 38 mEq/L (21-27); VBG PCO2 77 mmHg (41-51); VBG PO2 40 mmHg (25-50)
[2020-01-24 14:10] LABS: WBC,Urine 0-3 per hpf (0-3)
[2020-01-24 14:52] LABS: ABG Base Excess 9 mEq/L (-2 to 3); ABG HCO3 37 mEq/L (21-27); ABG Oxygen Saturation 96 % (95-98); ABG PCO2 75 mmHg (35-45); ABG PH 7.31 pH Units (7.32-7.45); ABG PO2 94 mmHg (85-104); ABG TCO2 40 mEq/L (20-26)
[2020-01-24 20:11] LABS: Adenovirus Not Detected (Not Detect); Bordetella Pertussis Not Detected (Not Detect); Chlamydophila pneumoniae Not Detected (Not Detect); Coronavirus 229E Not Detected (Not Detect); Coronavirus HKU1 Not Detected (Not Detect); Coronavirus NL63 Not Detected (Not Detect); Coronavirus OC43 Not Detected (Not Detect); Human Metapneumovirus Not Detected (Not Detect); Human Rhinovirus/Enterovirus DETECTED (Not Detect); Influenza A Subtype 2009 H1 Not Detected (Not Detect); Influenza B Not Detected (Not Detect); Mycoplasma pneumoniae Not Detected (Not Detect); Parainfluenza Virus 1 Not Detected (Not Detect); Parainfluenza Virus 2 Not Detected (Not Detect); Parainfluenza Virus 3 Not Detected (Not Detect); Parainfluenza Virus 4 Not Detected (Not Detect); Respiratory Syncytial Virus Not Detected (Not Detect); SARS-CoV-2 Not Detected (Not Detect)
[2020-01-24] MEDS ORDERED: *HR* Dextrose 50 % in Water (Vial) 50 ML VIAL IVP PRN (21:47)
[2020-01-24] MEDS ORDERED: Dextrose Gel 15 GM/37.5 ML TUBE PO PRN ×2 (21:47)
[2020-01-24] MEDS ORDERED: D5% in Water 1,000 ML IVC PRN (21:47)
[2020-01-24] MEDS ORDERED: Ipratropium/Albuterol Neb 3 ML ONE (22:33)
[2020-01-24] MEDS: Ipratropium/Albuterol Neb 3 ML IH SCH (22:38)
[2020-01-24] MEDS: Budesonide/Formoterol 160/4.5 1 PUFF INH IH SCH (22:38)
[2020-01-24] MEDS: amLODIPine 5 MG TABLET PO SCH (22:55)
[2020-01-25] MEDS ORDERED: *HR* Enoxaparin 30 MG/0.3 ML SYRINGE SQ SCH (06:00)
[2020-01-25] MEDS: methylPREDNISolone 125 MG/2 ML VIAL IVP SCH ×4 (06:07→23:15)
[2020-01-25] MEDS: Ipratropium/Albuterol Neb 3 ML IH SCH ×3 (06:46→21:18)
[2020-01-25] MEDS: Budesonide/Formoterol 160/4.5 1 PUFF INH IH SCH ×2 (06:53→21:18)
[2020-01-25 07:27] LABS: Hematocrit 27.1 % (37.5-50.1); Hemoglobin 8.3 g/dL (12.9-16.9); Mean Corpuscular HGB Conc 30.6 g/dL (31.6-35.5); Mean Corpuscular Volume 94.8 fL (83.0-100.0); Mean Platelet Volume 10.7 fL (9.4-12.4); Platelet Count 248 K/mcL (140-400); Red Blood Count 2.86 M/mcL (4.19-5.50); Red Cell Distribution Width 15.4 % (11.5-14.5); White Blood Count 8.7 K/mcL (4.3-11.1)
[2020-01-25 07:32] LABS: VBG HCO3 37 mEq/L (21-27); VBG PCO2 72 mmHg (41-51); VBG PH 7.32 pH Units (7.32-7.42); VBG PO2 46 mmHg (25-50)
[2020-01-25 07:33] LABS: INR 1.1; Prothrombin Time 12.9 Seconds (9.4-12.1)
[2020-01-25 07:35] LABS: Activated Partial Thrombo Time 34.1 Seconds (26.0-36.0)
[2020-01-25 07:47] LABS: Alanine Aminotransferase 10 Units/L (7-52); Albumin 3.7 g/dL (3.5-5.7); Albumin/Globulin Ratio 1.6 (1.1-2.2); Alkaline Phosphatase 32 Units/L (34-104); Aspartate Amino Transferase 16 Units/L (13-39); BUN/Creatinine Ratio 42 (6-26); Bilirubin,Total 0.3 mg/dL (0.3-1.0); Blood Urea Nitrogen 37 mg/dL (8-23); Calcium 9.4 mg/dL (8.6-10.3); Carbon Dioxide 37 mEq/L (23-29); Chloride 98 mEq/L (98-107); Globulin 2.3 g/dL (2.4-3.5); Glucose 152 mg/dL (70-105); Osmolality,Calculated 304 (280-300); Sodium 141 mEq/L (136-145); eGFR For African Americans > 60 (> 60); eGFR For Non-African Americans > 60 (> 60)
[2020-01-25] MEDS: Torsemide 20 MG TABLET PO SCH (09:40)
[2020-01-25] MEDS: *HR* Metformin 500 MG TABLET PO SCH ×2 (09:41→18:23)
[2020-01-25] MEDS: DilTIAZem CD (24hr) 120 MG CAP.ER.24H PO SCH (09:41)
[2020-01-25 13:48] LABS: Estimated Average Glucose 117 mg/dl
[2020-01-25] MEDS: levoFLOXacin 500 MG/100 ML 500 MG/100 ML BAG IVPB SCH (14:01)
[2020-01-25] MEDS ORDERED: Albuterol 2.5 MG/3 ML NEBULIZER ONE (15:31)
[2020-01-25] MEDS: Albuterol 2.5 MG/3 ML NEBULIZER IH PRN (15:40)
[2020-01-25] MEDS ORDERED: *HR* Dextrose 50 % in Water (Vial) 50 ML VIAL IVP PRN (17:38)
[2020-01-25] MEDS ORDERED: D5% in Water 1,000 ML IVC PRN (17:38)
[2020-01-25] MEDS ORDERED: Dextrose Gel 15 GM/37.5 ML TUBE PO PRN ×2 (17:38)
[2020-01-25] MEDS: Insulin LISPRO 300 UNITS/3 ML VIAL SQ SCH ×2 (18:22→23:00)
[2020-01-25] MEDS: Mirtazapine 15 MG TABLET PO SCH (23:00)
[2020-01-25] MEDS: amLODIPine 5 MG TABLET PO SCH (23:00)
[2020-01-26] MEDS: *HR* Enoxaparin 40 MG/0.4 ML SYRINGE SQ SCH (05:33)
[2020-01-26] MEDS: Ipratropium/Albuterol Neb 3 ML IH SCH ×4 (05:33→21:51)
[2020-01-26] MEDS: methylPREDNISolone 125 MG/2 ML VIAL IVP SCH ×3 (05:34→18:24)
[2020-01-26] MEDS: Insulin LISPRO 300 UNITS/3 ML VIAL SQ SCH ×4 (08:06→21:11)
[2020-01-26] MEDS: DilTIAZem CD (24hr) 120 MG CAP.ER.24H PO SCH (08:07)
[2020-01-26] MEDS: Torsemide 20 MG TABLET PO SCH (08:07)
[2020-01-26] MEDS: *HR* Metformin 500 MG TABLET PO SCH ×2 (08:08→17:20)
[2020-01-26] MEDS: Budesonide/Formoterol 160/4.5 1 PUFF INH IH SCH ×2 (09:50→21:54)
[2020-01-26 09:55] LABS: ABG Base Excess 9 mEq/L (-2 to 3); ABG HCO3 34 mEq/L (21-27); ABG Oxygen Saturation 98 % (95-98); ABG PCO2 52 mmHg (35-45); ABG PH 7.43 pH Units (7.32-7.45); ABG PO2 102 mmHg (85-104); ABG TCO2 36 mEq/L (20-26)
[2020-01-26 10:30] LABS: Basophils % 0.1 %; Hematocrit 27.1 % (37.5-50.1); Hemoglobin 8.6 g/dL (12.9-16.9); Immature Granulocytes % 0.6 % (0-4); Lymphocytes # 0.2 K/mcL (0.6-4.6); Lymphocytes % 1.7 %; Mean Corpuscular HGB Conc 31.7 g/dL (31.6-35.5); Mean Corpuscular Hemoglobin 29.6 pg (28.0-33.3); Mean Corpuscular Volume 93.1 fL (83.0-100.0); Mean Platelet Volume 10.5 fL (9.4-12.4); Monocytes # 0.4 K/mcL (0.0-1.3); Monocytes % 4.2 %; Neutrophils # 9.3 K/mcL (1.6-8.9); Platelet Count 251 K/mcL (140-400); Red Blood Count 2.91 M/mcL (4.19-5.50); Red Cell Distribution Width 15.8 % (11.5-14.5); Segmented Neutrophils % 93.4 %
[2020-01-26 10:47] LABS: Basophilic Stippling 1+ (Not Present); Platelet Estimate Normal (Normal)
[2020-01-26 10:51] LABS: Alanine Aminotransferase 15 Units/L (7-52); Albumin 3.8 g/dL (3.5-5.7); Albumin/Globulin Ratio 1.4 (1.1-2.2); Alkaline Phosphatase 27 Units/L (34-104); Aspartate Amino Transferase 24 Units/L (13-39); BUN/Creatinine Ratio 29 (6-26); Bilirubin,Total 0.3 mg/dL (0.3-1.0); Blood Urea Nitrogen 29 mg/dL (8-23); Calcium 9.3 mg/dL (8.6-10.3); Carbon Dioxide 36 mEq/L (23-29); Chloride 99 mEq/L (98-107); Globulin 2.7 g/dL (2.4-3.5); Glucose 194 mg/dL (70-105); Osmolality,Calculated 303 (280-300); Sodium 141 mEq/L (136-145); Total Protein 6.5 g/dL (6.4-8.9); eGFR For African Americans > 60 (> 60); eGFR For Non-African Americans > 60 (> 60)
[2020-01-26 10:58] LABS: Bilirubin,Urine Negative (Negative); Blood,Urine Negative (Negative); Clarity,Urine Clear (Clear); Color,Urine Yellow (Yellow); Glucose,Urine (UA) Normal (Normal); Ketones,Urine Negative (Negative); Leukocyte Esterase,Urine Negative (Negative); Nitrite,Urine Negative (Negative); Protein,Urine 100 mg/dL (Neg-Trace); Urobilinogen,Urine Normal (Normal)
[2020-01-26 12:33] LABS: Transitional Epi Cells,Urine Few per hpf (None-Few); WBC,Urine 0-3 per hpf (0-3)
[2020-01-26] MEDS: levoFLOXacin 500 MG/100 ML 500 MG/100 ML BAG IVPB SCH (14:20)
[2020-01-26] MEDS: amLODIPine 5 MG TABLET PO SCH (20:18)
[2020-01-26] MEDS: Mirtazapine 15 MG TABLET PO SCH (20:19)
[2020-01-27] MEDS: Ipratropium/Albuterol Neb 3 ML IH SCH ×3 (04:16→16:53)
[2020-01-27] MEDS: *HR* Enoxaparin 40 MG/0.4 ML SYRINGE SQ SCH (05:45)
[2020-01-27] MEDS ORDERED: methylPREDNISolone 125 MG/2 ML VIAL IVP SCH (06:00)
[2020-01-27 07:33] LABS: Hematocrit 29.8 % (37.5-50.1); Hemoglobin 9.4 g/dL (12.9-16.9); Immature Granulocytes % 0.6 % (0-4); Lymphocytes # 0.1 K/mcL (0.6-4.6); Lymphocytes % 1.3 %; Mean Corpuscular HGB Conc 31.5 g/dL (31.6-35.5); Mean Corpuscular Hemoglobin 29.7 pg (28.0-33.3); Monocytes # 0.5 K/mcL (0.0-1.3); Monocytes % 4.8 %; Neutrophils # 9.7 K/mcL (1.6-8.9); Nucleated Red Blood Cells 0.2 /100 WBC (0); Platelet Count 273 K/mcL (140-400); Red Blood Count 3.17 M/mcL (4.19-5.50); Red Cell Distribution Width 15.9 % (11.5-14.5); Segmented Neutrophils % 93.3 %; White Blood Count 10.4 K/mcL (4.3-11.1)
[2020-01-27 07:45] LABS: BUN/Creatinine Ratio 33 (6-26); Blood Urea Nitrogen 34 mg/dL (8-23); Calcium 9.5 mg/dL (8.6-10.3); Carbon Dioxide 36 mEq/L (23-29); Chloride 99 mEq/L (98-107); Glucose 153 mg/dL (70-105); Osmolality,Calculated 305 (280-300); Potassium 3.8 mEq/L (3.5-5.1); Sodium 142 mEq/L (136-145); eGFR For African Americans > 60 (> 60); eGFR For Non-African Americans > 60 (> 60)
[2020-01-27] MEDS: Torsemide 20 MG TABLET PO SCH (08:26)
[2020-01-27] MEDS: *HR* Metformin 500 MG TABLET PO SCH ×2 (08:27→16:59)
[2020-01-27] MEDS: DilTIAZem CD (24hr) 120 MG CAP.ER.24H PO SCH (08:28)
[2020-01-27] MEDS: Insulin LISPRO 300 UNITS/3 ML VIAL SQ SCH ×3 (08:29→17:01)
[2020-01-27] MEDS: Budesonide/Formoterol 160/4.5 1 PUFF INH IH SCH (09:17)
[2020-01-27] MEDS: Albuterol 2.5 MG/3 ML NEBULIZER IH PRN ×2 (09:17→16:53)
[2020-01-27] MEDS ORDERED: Nitroglycerin 0.4 MG TAB.SUBL SL PRN (10:36)
[2020-01-27] MEDS ORDERED: Nitroglycerin 0.4 MG TAB.SUBL SL ONE (10:38)
[2020-01-27] MEDS ORDERED: Mag Hydrox/Al Hydrox/Simeth 30 ML UDC PO ONE (10:58)
[2020-01-27] MEDS ORDERED: haloperidoL 1 MG TABLET PO ONE (12:10)
[2020-01-27] MEDS: levoFLOXacin 500 MG/100 ML 500 MG/100 ML BAG IVPB SCH (12:44)
[2020-01-27] MEDS ORDERED: Aspirin 325 MG TABLET PO ONE (15:44)
[2020-01-27] MEDS ORDERED: haloperidoL 1 MG TABLET PO PRN (16:46)
[2020-01-27] MEDS ORDERED: *HR* Heparin 5,000 UNIT/ML VIAL IVP PRN ×2 (18:02)
[2020-01-27] MEDS ORDERED: *HR* Heparin 5,000 UNIT/ML VIAL IVP ONE (18:02)
[2020-01-27] MEDS ORDERED: Heparin 25,000UNIT/250ML 1/2NS 25,000 UNIT/250 ML IV.SOLN IVC SCH (18:15)
[2020-01-27 18:25] VITALS: BP 161/62
[2020-01-28] MEDS ORDERED: MethylPREDNISolone 40 MG/ML VIAL IVP SCH (09:00)
== END 2020-01-27 19:08 | disposition short-term general hospital (02) | DRG 193 ==
LOC: EMEROOGRE 11:51 → INPGRE 22:06
PROVIDERS: ADMIT Family Medicine; ATTEND Family Medicine

== ENCOUNTER 2020-02-06 14:44 | Inpatient (IN) ==
[2020-02-06] MEDS ORDERED: D5% in Water 1,000 ML IVC PRN (19:22)
[2020-02-06] MEDS ORDERED: Dextrose Gel 15 GM/37.5 ML TUBE PO PRN ×2 (19:22)
[2020-02-06] MEDS ORDERED: *HR* Dextrose 50 % in Water (Vial) 50 ML VIAL IVP PRN (19:22)
[2020-02-06] MEDS: Mirtazapine 15 MG TABLET PO SCH (21:59)
[2020-02-06] MEDS: Insulin LISPRO 300 UNITS/3 ML VIAL SQ SCH (22:03)
[2020-02-07] MEDS: Budesonide/Formoterol 160/4.5 1 PUFF INH IH SCH ×3 (00:21→20:29)
[2020-02-07] MEDS: Ipratropium/Albuterol Neb 3 ML IH SCH ×8 (00:21→23:30)
[2020-02-07] MEDS: *HR* Enoxaparin 40 MG/0.4 ML SYRINGE SQ SCH (04:46)
[2020-02-07] MEDS: Insulin LISPRO 300 UNITS/3 ML VIAL SQ SCH ×4 (07:51→21:01)
[2020-02-07] MEDS ORDERED: DilTIAZem CD (24hr) 120 MG CAP.ER.24H PO SCH (09:00)
[2020-02-07] MEDS: amLODIPine 5 MG TABLET PO SCH (09:05)
[2020-02-07] MEDS: Aspirin 325 MG TABLET PO SCH (09:05)
[2020-02-07] MEDS: predniSONE 20 MG TABLET PO SCH (09:05)
[2020-02-07] MEDS: Fluticasone Propionate Nasal 50 MCG/SPRAY BOTTLE NS SCH (09:05)
[2020-02-07] MEDS: Torsemide 20 MG TABLET PO SCH (09:06)
[2020-02-07] MEDS: Cyanocobalamin (B-12) 1,000 MCG TABLET PO SCH (09:06)
[2020-02-07] MEDS: *HR* Metformin 500 MG TABLET PO SCH (09:06)
[2020-02-07] MEDS: Mirtazapine 15 MG TABLET PO SCH (21:00)
[2020-02-08] MEDS: *HR* Enoxaparin 40 MG/0.4 ML SYRINGE SQ SCH (04:02)
[2020-02-08] MEDS: Ipratropium/Albuterol Neb 3 ML IH SCH ×6 (04:02→23:00)
[2020-02-08 05:28] LABS: Basophils % 0.1 %; Eosinophils % 0.4 %; Hematocrit 29.2 % (37.5-50.1); Hemoglobin 9.2 g/dL (12.9-16.9); Immature Granulocytes % 2.1 % (0-4); Lymphocytes # 0.8 K/mcL (0.6-4.6); Lymphocytes % 11.4 %; Mean Corpuscular HGB Conc 31.5 g/dL (31.6-35.5); Mean Corpuscular Hemoglobin 28.5 pg (28.0-33.3); Mean Corpuscular Volume 90.4 fL (83.0-100.0); Mean Platelet Volume 10.5 fL (9.4-12.4); Monocytes # 0.7 K/mcL (0.0-1.3); Monocytes % 9.2 %; Neutrophils # 5.4 K/mcL (1.6-8.9); Platelet Count 173 K/mcL (140-400); Red Blood Count 3.23 M/mcL (4.19-5.50); Red Cell Distribution Width 15.8 % (11.5-14.5); Segmented Neutrophils % 76.8 %; White Blood Count 7.1 K/mcL (4.3-11.1)
[2020-02-08 05:53] LABS: BUN/Creatinine Ratio 39 (6-26); Blood Urea Nitrogen 37 mg/dL (8-23); Calcium 8.5 mg/dL (8.6-10.3); Carbon Dioxide 38 mEq/L (23-29); Chloride 98 mEq/L (98-107); Glucose 225 mg/dL (70-105); Osmolality,Calculated 304 (280-300); Potassium 3.6 mEq/L (3.5-5.1); Sodium 139 mEq/L (136-145); eGFR For African Americans > 60 (> 60); eGFR For Non-African Americans > 60 (> 60)
[2020-02-08] MEDS: Budesonide/Formoterol 160/4.5 1 PUFF INH IH SCH ×2 (06:35→19:31)
[2020-02-08] MEDS: Insulin LISPRO 300 UNITS/3 ML VIAL SQ SCH ×4 (07:58→21:57)
[2020-02-08] MEDS: *HR* Metformin 500 MG TABLET PO SCH (08:00)
[2020-02-08] MEDS: Torsemide 20 MG TABLET PO SCH (08:00)
[2020-02-08] MEDS: amLODIPine 5 MG TABLET PO SCH (08:00)
[2020-02-08] MEDS: predniSONE 20 MG TABLET PO SCH (08:00)
[2020-02-08] MEDS: Aspirin 325 MG TABLET PO SCH (08:01)
[2020-02-08] MEDS: Fluticasone Propionate Nasal 50 MCG/SPRAY BOTTLE NS SCH (08:01)
[2020-02-08] MEDS: Cyanocobalamin (B-12) 1,000 MCG TABLET PO SCH (08:01)
[2020-02-08] MEDS: Mirtazapine 15 MG TABLET PO SCH (21:56)
[2020-02-09] MEDS: Ipratropium/Albuterol Neb 3 ML IH SCH ×2 (04:00→07:24)
[2020-02-09] MEDS: *HR* Enoxaparin 40 MG/0.4 ML SYRINGE SQ SCH (04:00)
[2020-02-09] MEDS: Budesonide/Formoterol 160/4.5 1 PUFF INH IH SCH (07:21)
[2020-02-09] MEDS: Insulin LISPRO 300 UNITS/3 ML VIAL SQ SCH (07:53)
[2020-02-09] MEDS: amLODIPine 5 MG TABLET PO SCH (07:54)
[2020-02-09] MEDS: Torsemide 20 MG TABLET PO SCH (07:55)
[2020-02-09] MEDS: *HR* Metformin 500 MG TABLET PO SCH (07:55)
[2020-02-09] MEDS: Aspirin 325 MG TABLET PO SCH (07:55)
[2020-02-09] MEDS: predniSONE 20 MG TABLET PO SCH (07:55)
[2020-02-09] MEDS: Cyanocobalamin (B-12) 1,000 MCG TABLET PO SCH (07:55)
[2020-02-09] MEDS: Fluticasone Propionate Nasal 50 MCG/SPRAY BOTTLE NS SCH (07:56)
[2020-02-09 08:24] VITALS: BP 137/71
== END 2020-02-09 11:45 | disposition home or self-care (01) | DRG 945 ==
LOC: INPGRE 16:49
PROVIDERS: ADMIT Family Medicine; ATTEND Family Medicine

== ENCOUNTER 2020-03-27 08:48 | Observation (INO) ==
[2020-03-27] MEDS ORDERED: Ipratropium/Albuterol Neb 3 ML ONE (08:52)
[2020-03-27] MEDS ORDERED: Furosemide 40 MG/4 ML VIAL IVP ONE (09:08)
[2020-03-27] MEDS ORDERED: methylPREDNISolone 125 MG/2 ML VIAL IVP ONE (09:08)
[2020-03-27 09:19] LABS: Basophils % 0.3 %; Eosinophils # 0.1 K/mcL (0.0-0.6); Hematocrit 41.6 % (37.5-50.1); Hemoglobin 13.2 g/dL (12.9-16.9); Immature Granulocytes % 2.7 % (0-4); Lymphocytes # 1.2 K/mcL (0.6-4.6); Lymphocytes % 8.6 %; Mean Corpuscular HGB Conc 31.7 g/dL (31.6-35.5); Mean Corpuscular Hemoglobin 29.3 pg (28.0-33.3); Mean Corpuscular Volume 92.2 fL (83.0-100.0); Mean Platelet Volume 10.5 fL (9.4-12.4); Monocytes # 0.6 K/mcL (0.0-1.3); Monocytes % 4.5 %; Neutrophils # 11.2 K/mcL (1.6-8.9); Platelet Count 267 K/mcL (140-400); Red Blood Count 4.51 M/mcL (4.19-5.50); Red Cell Distribution Width 14.7 % (11.5-14.5); Segmented Neutrophils % 82.9 %; White Blood Count 13.5 K/mcL (4.3-11.1)
[2020-03-27 09:30] LABS: Bilirubin,Urine Negative (Negative); Blood,Urine Negative (Negative); Clarity,Urine Clear (Clear); Color,Urine Yellow (Yellow); Glucose,Urine (UA) Normal (Normal); Ketones,Urine Negative (Negative); Leukocyte Esterase,Urine Negative (Negative); Nitrite,Urine Negative (Negative); PH,Urine 6.5 pH Units (5.0-8.0); Protein,Urine Negative (Neg-Trace); Specific Gravity,Urine 1.015 (1.010-1.025); Urobilinogen,Urine Normal (Normal)
[2020-03-27 09:34] LABS: Alanine Aminotransferase 13 Units/L (7-52); Albumin 4.1 g/dL (3.5-5.7); Albumin/Globulin Ratio 1.5 (1.1-2.2); Alkaline Phosphatase 44 Units/L (34-104); Aspartate Amino Transferase 14 Units/L (13-39); BUN/Creatinine Ratio 30 (6-26); Bilirubin,Total 0.4 mg/dL (0.3-1.0); Blood Urea Nitrogen 28 mg/dL (8-23); Calcium 9.4 mg/dL (8.6-10.3); Carbon Dioxide 37 mEq/L (23-29); Chloride 99 mEq/L (98-107); Globulin 2.8 g/dL (2.4-3.5); Glucose 143 mg/dL (70-105); Magnesium 1.8 mg/dL (1.6-2.6); Osmolality,Calculated 302 (280-300); Potassium 4.1 mEq/L (3.5-5.1); Sodium 142 mEq/L (136-145); Total Protein 6.9 g/dL (6.4-8.9); Troponin I 0.03 ng/mL (< 0.04); eGFR For African Americans > 60 (> 60); eGFR For Non-African Americans > 60 (> 60)
[2020-03-27 09:45] LABS: Prothrombin Time 11.5 Seconds (9.4-12.1)
[2020-03-27] MEDS ORDERED: Naloxone 0.4 MG/ML INJ IVP PRN (13:37)
[2020-03-27 14:23] LABS: Basophils % 0.2 %; Eosinophils % 0.1 %; Hematocrit 40.6 % (37.5-50.1); Hemoglobin 12.7 g/dL (12.9-16.9); Immature Granulocytes % 1.1 % (0-4); Lymphocytes # 0.4 K/mcL (0.6-4.6); Lymphocytes % 2.6 %; Mean Corpuscular HGB Conc 31.3 g/dL (31.6-35.5); Mean Corpuscular Hemoglobin 28.9 pg (28.0-33.3); Mean Corpuscular Volume 92.3 fL (83.0-100.0); Mean Platelet Volume 10.2 fL (9.4-12.4); Monocytes # 0.1 K/mcL (0.0-1.3); Monocytes % 0.6 %; Neutrophils # 13.4 K/mcL (1.6-8.9); Platelet Count 264 K/mcL (140-400); Red Cell Distribution Width 14.6 % (11.5-14.5); Segmented Neutrophils % 95.4 %
[2020-03-27] MEDS: Ipratropium/Albuterol Neb 3 ML IH SCH ×3 (14:36→20:41)
[2020-03-27 14:48] LABS: Troponin I < 0.03 ng/mL (< 0.04)
[2020-03-27 15:29] LABS: BUN/Creatinine Ratio 32 (6-26); Blood Urea Nitrogen 31 mg/dL (8-23); Calcium 9.7 mg/dL (8.6-10.3); Carbon Dioxide 38 mEq/L (23-29); Chloride 98 mEq/L (98-107); Glucose 198 mg/dL (70-105); Osmolality,Calculated 310 (280-300); Potassium 4.5 mEq/L (3.5-5.1); Sodium 144 mEq/L (136-145); eGFR For African Americans > 60 (> 60); eGFR For Non-African Americans > 60 (> 60)
[2020-03-27] MEDS ORDERED: *HR* Dextrose 50 % in Water (Vial) 50 ML VIAL IVP PRN (18:02)
[2020-03-27] MEDS ORDERED: Dextrose Gel 15 GM/37.5 ML TUBE PO PRN ×2 (18:02)
[2020-03-27] MEDS ORDERED: D5% in Water 1,000 ML IVC PRN (18:02)
[2020-03-27] MEDS: Budesonide/Formoterol 160/4.5 1 PUFF INH IH SCH (20:41)
[2020-03-27] MEDS ORDERED: Mirtazapine 15 MG TABLET PO SCH (21:00)
[2020-03-27] MEDS ORDERED: Insulin LISPRO 300 UNITS/3 ML VIAL SQ SCH (21:00)
[2020-03-27] MEDS ORDERED: Budesonide/Formoterol 160/4.5 1 PUFF INH IH SCH (22:00)
[2020-03-28] MEDS: Ipratropium/Albuterol Neb 3 ML IH SCH ×6 (00:18→15:16)
[2020-03-28] MEDS ORDERED: Tiotropium 18 MCG inhalation IH ONE (06:59)
[2020-03-28] MEDS ORDERED: Acetaminophen 325 MG TABLET PO PRN (07:00)
[2020-03-28] MEDS ORDERED: Ibuprofen 600 MG TABLET PO PRN (07:01)
[2020-03-28] MEDS: Budesonide/Formoterol 160/4.5 1 PUFF INH IH SCH (07:01)
[2020-03-28] MEDS: Insulin LISPRO 300 UNITS/3 ML VIAL SQ SCH ×2 (08:07→11:45)
[2020-03-28] MEDS ORDERED: *HR* Enoxaparin 30 MG/0.3 ML SYRINGE SQ SCH (09:00)
[2020-03-28] MEDS ORDERED: Azithromycin 250 MG TABLET PO SCH (09:00)
[2020-03-28] MEDS ORDERED: amLODIPine 5 MG TABLET PO SCH (09:00)
[2020-03-28] MEDS ORDERED: Cyanocobalamin (B-12) 1,000 MCG TABLET PO SCH (09:00)
[2020-03-28] MEDS ORDERED: Torsemide 20 MG TABLET PO SCH (09:00)
[2020-03-28] MEDS ORDERED: Aspirin 325 MG TABLET PO SCH (09:00)
[2020-03-28] MEDS ORDERED: predniSONE 20 MG TABLET PO SCH (09:00)
[2020-03-28] MEDS ORDERED: *HR* Metformin 500 MG TABLET PO SCH (09:00)
[2020-03-28] MEDS ORDERED: Fluticasone Propionate Nasal 50 MCG/SPRAY BOTTLE NS SCH (09:00)
[2020-03-28] MEDS ORDERED: cefTRIAXone 1,000 MG in 0.9 % Sodium Chloride Mini Bag 100 ML IVP SCH (09:00)
[2020-03-28] MEDS ORDERED: Tiotropium 18 MCG inhalation IH SCH (10:00)
[2020-03-28] MEDS ORDERED: Furosemide 40 MG/4 ML VIAL IVP ONE (10:31)
[2020-03-28 11:40] VITALS: BP 155/62
== END 2020-03-28 15:50 | disposition home or self-care (01) ==
LOC: INPGRE 08:48 → EMEROOGRE 08:48 → INPGRE 13:14
PROVIDERS: ADMIT Family Medicine; ATTEND Family Medicine

== ENCOUNTER 2020-07-31 02:11 | Inpatient (IN) ==
[2020-07-31] MEDS ORDERED: Ipratropium/Albuterol Neb 3 ML IH ONE (02:23)
[2020-07-31] MEDS ORDERED: methylPREDNISolone 125 MG/2 ML VIAL IVP ONE (02:31)
[2020-07-31 02:46] LABS: Basophils % 0.1 %; Hematocrit 31.9 % (37.5-50.1); Hemoglobin 9.9 g/dL (12.9-16.9); Immature Granulocytes % 1.6 % (0-4); Lymphocytes # 0.3 K/mcL (0.6-4.6); Lymphocytes % 3.1 %; Mean Corpuscular Hemoglobin 30.3 pg (28.0-33.3); Mean Corpuscular Volume 97.6 fL (83.0-100.0); Mean Platelet Volume 10.2 fL (9.4-12.4); Monocytes # 0.7 K/mcL (0.0-1.3); Monocytes % 7.9 %; Neutrophils # 7.8 K/mcL (1.6-8.9); Platelet Count 214 K/mcL (140-400); Red Blood Count 3.27 M/mcL (4.19-5.50); Red Cell Distribution Width 14.6 % (11.5-14.5); Segmented Neutrophils % 87.3 %
[2020-07-31 02:51] LABS: INR 1.1; Prothrombin Time 12.5 Seconds (9.4-12.1)
[2020-07-31 02:51] LABS: ABG Base Excess 12 mEq/L (-2 to 3); ABG HCO3 38 mEq/L (21-27); ABG Oxygen Saturation 100 % (95-98); ABG PCO2 60 mmHg (35-45); ABG PH 7.41 pH Units (7.32-7.45); ABG PO2 252 mmHg (85-104); ABG TCO2 40 mEq/L (20-26)
[2020-07-31 02:54] LABS: Bilirubin,Urine Negative (Negative); Blood,Urine Trace-intact (Negative); Clarity,Urine Slightly Cloudy (Clear); Color,Urine LIGHT YELLOW (Yellow); Glucose,Urine (UA) Normal (Normal); Ketones,Urine Negative (Negative); Leukocyte Esterase,Urine Negative (Negative); Nitrite,Urine Negative (Negative); PH,Urine 6.5 pH Units (5.0-8.0); Protein,Urine Negative (Neg-Trace); Urobilinogen,Urine Normal (Normal)
[2020-07-31 03:01] LABS: BUN/Creatinine Ratio 36 (6-26); Blood Urea Nitrogen 37 mg/dL (8-23); Carbon Dioxide 38 mEq/L (23-29); Chloride 97 mEq/L (98-107); Glucose 149 mg/dL (70-105); Osmolality,Calculated 309 (280-300); Potassium 3.5 mEq/L (3.5-5.1); Sodium 144 mEq/L (136-145); eGFR For African Americans > 60 (> 60); eGFR For Non-African Americans > 60 (> 60)
[2020-07-31 03:02] LABS: Amorphous Sediment,Urine Few per hpf (None-Few); RBC,Urine 0-3 per hpf (0-3)
[2020-07-31] MEDS ORDERED: Azithromycin 250 MG TABLET PO ONE (03:02)
[2020-07-31 03:05] LABS: Troponin I 0.03 ng/mL (< 0.04)
[2020-07-31] MEDS ORDERED: Ipratropium/Albuterol Neb 3 ML IH PRN (04:23)
[2020-07-31] MEDS: *HR* Heparin 5,000 UNIT/ML VIAL SQ SCH ×2 (05:44→16:20)
[2020-07-31] MEDS: Tiotropium 10 INH DOSE IH SCH (07:26)
[2020-07-31] MEDS: Budesonide/Formoterol 160/4.5 1 PUFF INH IH SCH ×2 (07:26→18:56)
[2020-07-31] MEDS: Ipratropium/Albuterol Neb 3 ML IH SCH ×5 (07:28→23:03)
[2020-07-31] MEDS ORDERED: predniSONE 20 MG TABLET PO SCH (09:00)
[2020-07-31] MEDS ORDERED: Furosemide 40 MG in 0.9 % Sodium Chloride 50 ML IV SCH (09:00)
[2020-07-31] MEDS: amLODIPine 5 MG TABLET PO SCH (09:49)
[2020-07-31] MEDS: Aspirin 325 MG TABLET PO SCH (09:49)
[2020-07-31] MEDS: Furosemide 40 MG/4 ML VIAL IVP SCH (09:50)
[2020-07-31] MEDS: Roflumilast [Daliresp] 500 MCG PO SCH (09:50)
[2020-07-31] MEDS ORDERED: Saline Nasal Spray 44 ML BOTTLE NS PRN (14:39)
[2020-07-31] MEDS ORDERED: methylPREDNISolone 125 MG/2 ML VIAL IVP SCH (16:00)
[2020-07-31] MEDS: *HR* Metformin 500 MG TABLET PO SCH (16:22)
[2020-07-31 16:33] LABS: BUN/Creatinine Ratio 28 (6-26); Blood Urea Nitrogen 35 mg/dL (8-23); Calcium 8.5 mg/dL (8.6-10.3); Carbon Dioxide 40 mEq/L (23-29); Chloride 95 mEq/L (98-107); Glucose 203 mg/dL (70-105); Osmolality,Calculated 306 (280-300); Potassium 3.3 mEq/L (3.5-5.1); Sodium 141 mEq/L (136-145); eGFR For African Americans > 60 (> 60); eGFR For Non-African Americans 56 (> 60)
[2020-07-31] MEDS ORDERED: Dextrose Gel 15 GM/37.5 ML TUBE PO PRN ×2 (20:10)
[2020-07-31] MEDS ORDERED: D5% in Water 1,000 ML IVC PRN (20:10)
[2020-07-31] MEDS ORDERED: *HR* Dextrose 50 % in Water (Vial) 50 ML VIAL IVP PRN (20:10)
[2020-07-31] MEDS: Insulin LISPRO 300 UNITS/3 ML VIAL SUBQ SCH ×2 (20:55→21:24)
[2020-07-31] MEDS: Mirtazapine 15 MG TABLET PO SCH (21:23)
[2020-07-31] MEDS ORDERED: Melatonin 3 MG TABLET PO PRN (23:14)
[2020-08-01] MEDS: Ipratropium/Albuterol Neb 3 ML IH SCH ×5 (03:06→21:19)
[2020-08-01] MEDS: *HR* Heparin 5,000 UNIT/ML VIAL SQ SCH ×2 (06:01→17:11)
[2020-08-01 06:09] LABS: Basophils % 0.1 %; Hematocrit 27.1 % (37.5-50.1); Hemoglobin 8.7 g/dL (12.9-16.9); Immature Granulocytes % 2.4 % (0-4); Lymphocytes # 0.2 K/mcL (0.6-4.6); Lymphocytes % 3.1 %; Mean Corpuscular HGB Conc 32.1 g/dL (31.6-35.5); Mean Corpuscular Hemoglobin 30.3 pg (28.0-33.3); Mean Corpuscular Volume 94.4 fL (83.0-100.0); Mean Platelet Volume 10.6 fL (9.4-12.4); Monocytes # 0.4 K/mcL (0.0-1.3); Monocytes % 5.9 %; Platelet Count 211 K/mcL (140-400); Red Blood Count 2.87 M/mcL (4.19-5.50); Red Cell Distribution Width 14.1 % (11.5-14.5); Segmented Neutrophils % 88.5 %; White Blood Count 6.8 K/mcL (4.3-11.1)
[2020-08-01 06:35] LABS: BUN/Creatinine Ratio 35 (6-26); Blood Urea Nitrogen 34 mg/dL (8-23); Calcium 8.2 mg/dL (8.6-10.3); Carbon Dioxide 40 mEq/L (23-29); Chloride 95 mEq/L (98-107); Glucose 187 mg/dL (70-105); Osmolality,Calculated 305 (280-300); Potassium 3.1 mEq/L (3.5-5.1); Sodium 141 mEq/L (136-145); eGFR For African Americans > 60 (> 60); eGFR For Non-African Americans > 60 (> 60)
[2020-08-01] MEDS ORDERED: Haloperidol Lactate 5 MG/ML VIAL IVP PRN (06:54)
[2020-08-01] MEDS: Budesonide/Formoterol 160/4.5 1 PUFF INH IH SCH ×2 (08:30→21:19)
[2020-08-01] MEDS: Tiotropium 10 INH DOSE IH SCH (08:30)
[2020-08-01 09:23] LABS: Estimated Average Glucose 157 mg/dl; Hemoglobin A1C 7.1 %
[2020-08-01] MEDS: Insulin LISPRO 300 UNITS/3 ML VIAL SUBQ SCH ×4 (09:38→22:42)
[2020-08-01] MEDS: amLODIPine 5 MG TABLET PO SCH (09:40)
[2020-08-01] MEDS: Aspirin 325 MG TABLET PO SCH (10:06)
[2020-08-01] MEDS: Furosemide 40 MG/4 ML VIAL IVP SCH ×2 (10:06→22:28)
[2020-08-01] MEDS: Roflumilast [Daliresp] 500 MCG PO SCH (10:07)
[2020-08-01] MEDS ORDERED: hydrOXYzine pamoate 25 MG CAPSULE PO PRN (15:28)
[2020-08-01] MEDS: *HR* Metformin 500 MG TABLET PO SCH (17:10)
[2020-08-01] MEDS: Acetylcysteine 10% 2 ML INHSOL IH SCH ×2 (19:17→21:19)
[2020-08-01] MEDS: methylPREDNISolone 125 MG/2 ML VIAL IVP SCH (22:28)
[2020-08-01] MEDS: Mirtazapine 15 MG TABLET PO SCH (22:29)
[2020-08-02] MEDS: Ipratropium/Albuterol Neb 3 ML IH SCH ×3 (00:05→07:33)
[2020-08-02] MEDS: *HR* Heparin 5,000 UNIT/ML VIAL SQ SCH (06:04)
[2020-08-02] MEDS: Tiotropium 10 INH DOSE IH SCH (07:30)
[2020-08-02] MEDS: Budesonide/Formoterol 160/4.5 1 PUFF INH IH SCH (07:32)
[2020-08-02] MEDS: Acetylcysteine 10% 2 ML INHSOL IH SCH (07:33)
[2020-08-02] MEDS: amLODIPine 5 MG TABLET PO SCH (09:17)
[2020-08-02] MEDS: Furosemide 40 MG/4 ML VIAL IVP SCH (09:18)
[2020-08-02] MEDS: Aspirin 325 MG TABLET PO SCH (09:18)
[2020-08-02] MEDS: methylPREDNISolone 125 MG/2 ML VIAL IVP SCH (09:18)
[2020-08-02] MEDS: Insulin LISPRO 300 UNITS/3 ML VIAL SUBQ SCH ×2 (09:19→12:34)
[2020-08-02] MEDS: Roflumilast [Daliresp] 500 MCG PO SCH (09:19)
[2020-08-02 11:43] VITALS: BP 122/71
== END 2020-08-02 13:19 | disposition home or self-care (01) | DRG 291 ==
LOC: EMEROOGRE 02:11 → INPGRE 04:08
PROVIDERS: ADMIT Family Medicine; ATTEND Family Medicine

== ENCOUNTER 2020-09-05 15:54 | Inpatient (IN) ==
[2020-09-05] MEDS: *HR* Metformin 500 MG TABLET PO SCH (18:09)
[2020-09-05] MEDS: Mirtazapine 15 MG TABLET PO SCH (20:02)
[2020-09-05] MEDS: Budesonide/Formoterol 160/4.5 1 PUFF INH IH SCH (21:26)
[2020-09-06] MEDS: Aspirin 325 MG TABLET PO SCH (08:16)
[2020-09-06] MEDS: amLODIPine 5 MG TABLET PO SCH (08:16)
[2020-09-06] MEDS: Cyanocobalamin (B-12) 1,000 MCG TABLET PO SCH (08:17)
[2020-09-06] MEDS: Bumetanide 1 MG TABLET PO SCH (08:17)
[2020-09-06] MEDS: predniSONE 10 MG TABLET PO SCH (08:17)
[2020-09-06] MEDS: Budesonide/Formoterol 160/4.5 1 PUFF INH IH SCH ×2 (09:03→22:10)
[2020-09-06] MEDS: *HR* Metformin 500 MG TABLET PO SCH (18:42)
[2020-09-06] MEDS: Mirtazapine 15 MG TABLET PO SCH (20:37)
[2020-09-07] MEDS: Ipratropium/Albuterol Neb 3 ML IH PRN ×2 (04:06→21:45)
[2020-09-07] MEDS: Aspirin 325 MG TABLET PO SCH (08:19)
[2020-09-07] MEDS: Cyanocobalamin (B-12) 1,000 MCG TABLET PO SCH (08:19)
[2020-09-07] MEDS: amLODIPine 5 MG TABLET PO SCH (08:19)
[2020-09-07] MEDS: predniSONE 10 MG TABLET PO SCH (08:20)
[2020-09-07] MEDS: Bumetanide 1 MG TABLET PO SCH (08:20)
[2020-09-07] MEDS: Budesonide/Formoterol 160/4.5 1 PUFF INH IH SCH ×2 (10:00→21:43)
[2020-09-07] MEDS: *HR* Metformin 500 MG TABLET PO SCH (17:15)
[2020-09-07] MEDS: Mirtazapine 15 MG TABLET PO SCH (20:21)
[2020-09-08] MEDS: Cyanocobalamin (B-12) 1,000 MCG TABLET PO SCH (08:43)
[2020-09-08] MEDS: Bumetanide 1 MG TABLET PO SCH (08:43)
[2020-09-08] MEDS: predniSONE 10 MG TABLET PO SCH (08:43)
[2020-09-08] MEDS: Aspirin 325 MG TABLET PO SCH (08:43)
[2020-09-08] MEDS: amLODIPine 5 MG TABLET PO SCH (08:44)
[2020-09-08] MEDS: Ipratropium/Albuterol Neb 3 ML IH PRN (09:14)
[2020-09-08] MEDS: Budesonide/Formoterol 160/4.5 1 PUFF INH IH SCH ×2 (09:14→21:30)
[2020-09-08] MEDS ORDERED: *HR* LORazepam 0.5 MG TABLET PO PRN (10:19)
[2020-09-08] MEDS: Morphine Sulfate Oral CONC 10 MG/0.5 ML ORAL.SYG SL PRN ×3 (11:03→17:19)
[2020-09-08] MEDS ORDERED: Haloperidol Oral Conc 10 MG/5 ML UDC PO PRN (14:36)
[2020-09-08] MEDS ORDERED: *HR* LORazepam 1 MG TABLET PO ONE (16:07)
[2020-09-08] MEDS: Haloperidol Oral Conc 10 MG/5 ML UDC PO PRN (16:11)
[2020-09-08] MEDS: *HR* Metformin 500 MG TABLET PO SCH (16:12)
[2020-09-09] MEDS: Mirtazapine 15 MG TABLET PO SCH ×2 (00:18→19:35)
[2020-09-09] MEDS: Budesonide/Formoterol 160/4.5 1 PUFF INH IH SCH ×2 (10:41→21:20)
[2020-09-09] MEDS: Ipratropium/Albuterol Neb 3 ML IH PRN (10:45)
[2020-09-09] MEDS: amLODIPine 5 MG TABLET PO SCH (10:57)
[2020-09-09] MEDS: predniSONE 10 MG TABLET PO SCH (10:57)
[2020-09-09] MEDS: Cyanocobalamin (B-12) 1,000 MCG TABLET PO SCH (10:57)
[2020-09-09] MEDS: Bumetanide 1 MG TABLET PO SCH (10:58)
[2020-09-09] MEDS: Aspirin 325 MG TABLET PO SCH (10:58)
[2020-09-09] MEDS: *HR* LORazepam Oral Conc 2 MG/ML SL PRN (16:21)
[2020-09-09] MEDS: *HR* Metformin 500 MG TABLET PO SCH (16:21)
[2020-09-09] MEDS: Morphine Sulfate Oral CONC 10 MG/0.5 ML ORAL.SYG SL PRN (19:36)
[2020-09-09] MEDS: Haloperidol Oral Conc 10 MG/5 ML UDC PO PRN (19:36)
[2020-09-10] MEDS: *HR* LORazepam Oral Conc 2 MG/ML SL PRN (04:19)
[2020-09-10] MEDS: Ipratropium/Albuterol Neb 3 ML IH PRN ×3 (04:30→13:06)
[2020-09-10 06:56] VITALS: BP 115/49
[2020-09-10] MEDS: Haloperidol Oral Conc 10 MG/5 ML UDC PO PRN (09:23)
[2020-09-10] MEDS: Bumetanide 1 MG TABLET PO SCH (09:23)
[2020-09-10] MEDS: Aspirin 325 MG TABLET PO SCH (09:23)
[2020-09-10] MEDS: amLODIPine 5 MG TABLET PO SCH (09:24)
[2020-09-10] MEDS: Cyanocobalamin (B-12) 1,000 MCG TABLET PO SCH (09:25)
[2020-09-10] MEDS: predniSONE 10 MG TABLET PO SCH (09:25)
[2020-09-10] MEDS: Budesonide/Formoterol 160/4.5 1 PUFF INH IH SCH (09:38)
[2020-09-10] MEDS: Morphine Sulfate Oral CONC 10 MG/0.5 ML ORAL.SYG SL PRN (13:47)
== END 2020-09-10 15:15 | disposition hospice, home (50) | DRG 192 ==
LOC: INPGRE 15:59
PROVIDERS: ADMIT Family Medicine; ATTEND Family Medicine

== ENCOUNTER 2020-10-08 15:11 | Inpatient (IN) ==
[2020-10-08] MEDS ORDERED: Hyoscyamine SL 0.125 MG TAB.SUBL SL PRN (17:37)
[2020-10-08] MEDS ORDERED: Acetaminophen 650 MG RECTAL SUPP RC PRN (17:37)
[2020-10-08] MEDS ORDERED: Morphine Sulfate Oral CONC 10 MG/0.5 ML ORAL.SYG PO PRN (17:37)
[2020-10-08] MEDS ORDERED: *HR* LORazepam Oral Conc 2 MG/ML SL PRN (17:45)
[2020-10-08] MEDS ORDERED: Albuterol 2.5 MG/3 ML NEBULIZER AER PRN (17:54)
[2020-10-08] MEDS: *HR* Metformin 500 MG TABLET PO SCH (18:21)
[2020-10-08] MEDS: Budesonide/Formoterol 160/4.5 1 PUFF INH IH SCH (21:28)
[2020-10-08] MEDS: Mirtazapine 15 MG TABLET PO SCH (21:50)
[2020-10-09] MEDS: *HR* LORazepam 0.5 MG TABLET PO PRN ×2 (01:43→08:45)
[2020-10-09] MEDS: Torsemide 20 MG TABLET PO SCH (08:44)
[2020-10-09] MEDS: Cyanocobalamin (B-12) 1,000 MCG TABLET PO SCH (08:44)
[2020-10-09] MEDS: Aspirin 325 MG TABLET PO SCH (08:44)
[2020-10-09] MEDS: predniSONE 10 MG TABLET PO SCH (08:45)
[2020-10-09] MEDS: *HR* Metformin 500 MG TABLET PO SCH ×2 (08:46→16:06)
[2020-10-09] MEDS: Patient Taking Own Medication 1 EACH PO SCH (08:50)
[2020-10-09] MEDS: Budesonide/Formoterol 160/4.5 1 PUFF INH IH SCH ×2 (09:59→18:24)
[2020-10-09] MEDS: Tiotropium 10 INH DOSE IH SCH (09:59)
[2020-10-09] MEDS ORDERED: Haloperidol Oral Conc 10 MG/5 ML UDC PO PRN (11:13)
[2020-10-09] MEDS: *HR* LORazepam Oral Conc 2 MG/ML SL PRN ×3 (12:56→23:35)
[2020-10-09] MEDS ORDERED: Morphine Sulfate Oral CONC 10 MG/0.5 ML ORAL.SYG SL PRN (13:57)
[2020-10-09] MEDS: Morphine Sulfate Oral CONC 10 MG/0.5 ML ORAL.SYG SL PRN ×2 (14:07→17:46)
[2020-10-09] MEDS: Haloperidol Oral Conc 10 MG/5 ML UDC PO PRN ×4 (14:07→23:35)
[2020-10-09] MEDS: Mirtazapine 15 MG TABLET PO SCH (23:28)
[2020-10-10] MEDS: Tiotropium 10 INH DOSE IH SCH (09:23)
[2020-10-10] MEDS: Budesonide/Formoterol 160/4.5 1 PUFF INH IH SCH (09:24)
[2020-10-10] MEDS: Haloperidol Oral Conc 10 MG/5 ML UDC PO PRN ×5 (09:47→18:46)
[2020-10-10] MEDS: *HR* LORazepam Oral Conc 2 MG/ML SL PRN ×2 (09:47→14:29)
[2020-10-10] MEDS: Aspirin 325 MG TABLET PO SCH (10:50)
[2020-10-10] MEDS: *HR* Metformin 500 MG TABLET PO SCH ×2 (10:50→16:38)
[2020-10-10] MEDS: Torsemide 20 MG TABLET PO SCH (10:51)
[2020-10-10] MEDS: predniSONE 10 MG TABLET PO SCH (10:51)
[2020-10-10] MEDS: Patient Taking Own Medication 1 EACH PO SCH (10:51)
[2020-10-10] MEDS: Cyanocobalamin (B-12) 1,000 MCG TABLET PO SCH (10:51)
[2020-10-10] MEDS: Morphine Sulfate Oral CONC 10 MG/0.5 ML ORAL.SYG SL PRN ×5 (11:40→21:05)
[2020-10-11] MEDS: Morphine Sulfate Oral CONC 10 MG/0.5 ML ORAL.SYG SL PRN ×10 (00:05→18:22)
[2020-10-11] MEDS: Haloperidol Oral Conc 10 MG/5 ML UDC PO PRN ×4 (09:01→17:00)
[2020-10-11] MEDS: *HR* LORazepam Oral Conc 2 MG/ML SL PRN (10:29)
[2020-10-11] MEDS: Atropine 1% Opth Drops 100 DROP/5 ML BOTTLE SL PRN ×2 (13:17→18:21)
[2020-10-11 18:57] VITALS: BP 53/39
== END 2020-10-11 23:20 | disposition expired | DRG 192 ==
LOC: INPGRE 15:11
PROVIDERS: ADMIT Family Medicine; ATTEND Family Medicine